=== PATIENT | male | born 1960 | race Caucasian/White ===

== ENCOUNTER 2016-11-17 09:01 | Inpatient (IN) | payer OTHER ==
[2016-11-17 09:36] VITALS: BMI 33.0
--- NOTE | 2016-11-17 13:41 | HP ---
CIWA Score - CIWA Score Nausea/Vomitin Muscle Tremors: 3 Anxiety: 3 Agitation: 3 Paroxysmal Sweats: 2 Orientation: 0-Oriented Tacttile Disturbances: 2-Mild Itch/Numbness/Burn Auditory Disturbances: 2-Mild Harshness/Frighten Visual Disturbances: 2-Mild Sensitivity Headache: 2-Mild CIWA-Ar Total Score: 22 Admission ROS BHS - HPI Chief Complaint: I NEED HELP TO STOP DRINKING ALCOHOL Allergies/Adverse Reactions: Allergies Allergy/AdvReac Type Severity Reaction Status Date / Time No Known Allergies Allergy Verified 11/17/16 10:02 History of Present Illness: THIS 56 YEARS OLD MALE WITH ALCOHOL DEPENDENCE,WITHDRAWAL SYMPTOM,LAST DETOX [facility] 09/12 MULTIPLE ADMISSIONS FOR DETOX TYPE 2 DM,HTN,HYPERCHOLESTEROLEMIA,CAD WITH STENT IN 2002,ASTHMA LONGEST PERIOD OF [id number] YEARS Exam Limitations: No Limitations - Ebola screening Have you traveled outside of the country in the last 21 days: No (N) Have you had contact with anyone from an Ebola affected area: No Have you been sick,other than usual withdrawal symptoms: No Do you have a fever: No - Review of Systems Constitutional: Loss of Appetite, Malaise, Night Sweats, Changes in sleep, Weakness EENT: reports: Nose Congestion Respiratory: reports: No Symptoms reported Cardiac: reports: No Symptoms Reported GI: reports: Nausea, Vomiting, Abdominal cramping : reports: No Symptoms Reported Musculoskeletal: reports: Back Pain Integumentary: reports: Dryness Endocrine: reports: No Symptoms Reported Hematology: reports: No Symptoms Reported Psychiatric: reports: Depressed Patient History - Patient Medical History Hx Anemia: No Hx Asthma: Yes (ON ALBUTEROL INHALER) Hx Chronic Obstructive Pulmonary Disease (COPD): No Hx Cancer: No Hx Cardiac Disorders: No Hx Congestive Heart Failure: No Hx Hypertension: Yes (ON MED) Hx Hypercholesterolemia: Yes (ON MED) Hx Pacemaker: No HX Cerebrovascular Accident: No Hx Seizures: No Hx Dementia: No Hx Diabetes: Yes (Stop taking Metformin) Hx Gastrointestinal Disorders: No Hx Liver Disease: No Hx Genitourinary Disorders: No Hx Sexually Transmitted Disorders: No Hx Renal Disease (ESRD): No Hx Thyroid Disease: No Hx Human Immunodeficiency Virus (HIV): No (NEGATIVE HX LAST 09/12 ) Hx Hepatitis C: No Hx Depression: Yes (ANXIETY) Hx Suicide Attempt: No Hx Bipolar Disorder: No Hx Schizophrenia: No Other Medical History: NO SUICIDAL,NO HOMICIDAL - Patient Surgical History Past Surgical History: Yes Hx Neurologic Surgery: No Hx Cataract Extraction: No Hx Cardiac Surgery: Yes (1 stent in 2005) Hx Lung Surgery: No Hx Breast Surgery: No Hx Breast Biopsy: No Hx Abdominal Surgery: No Hx Appendectomy: No Hx Cholecystectomy: No Hx Genitourinary Surgery: No Hx Section: No Hx Orthopedic Surgery: No Other Surgical History: coronary angioplasty in 2005 Anesthesia Reaction: No - PPD History Documented Results: Negative w/proof Implanted On Prior R Admission?: Yes Date: 04/27/16 Results: 0 MM PPD to be Administered?: No - Smoking Cessation Smoking history: Current every day smoker Have you smoked in the past 12 months: Yes Aproximately how many cigarettes per day: 2 Cigars Per Day: 0 Hx Chewing Tobacco Use: No Initiated information on smoking cessation: Yes 'Breaking Loose' booklet given: 11/17/16 - Substance & Tx. History Hx Alcohol Use: Yes Hx Substance Use: No Substance Use Type: Alcohol Hx Substance Use Treatment: Yes ([facility] 09/12) - Substances Abused Alcohol Route: Oral Frequency: Daily Amount used: 2 pint of Vodka, 2-3 12 oz Beer Age of first use: 12 Date of Last Use: 11/17/16 Marijuana/Hashish Route: Smoking Frequency: 1-2 times per week Amount used: $20 Age of first use: 15 Date of Last Use: 11/10/16 Family Disease History - Family Disease History Family Disease History: Diabetes: Mother (LEUKEMIA,), Brother, Other: Father (chronic alcoholism , age 47), Mother Admission Physical Exam S - Vital Signs Vital Signs: Vital Signs - 24 hr 11/17/16 09:34 Temperature 98.5 F Pulse Rate 71 Respiratory 20 Rate Blood Pressure 148/88 - Physical General Appearance: Yes: Moderate Distress, Tremorous, Irritable, Sweating, Anxious HEENTM: Yes: Nasal Congestion Respiratory: Yes: Lungs Clear Neck: Yes: Within Normal Limits Breast: Yes: Within Normal Limits Cardiology: Yes: Within Normal Limits, Regular Rhythm, Regular Rate, S1, S2 Abdominal: Yes: Within Normal Limits, Normal Bowel Sounds, Non Tender, Flat, Soft Genitourinary: Yes: Within Normal Limits Musculoskeletal: Yes: Back pain Extremities: Yes: Tremors Neurological: Yes: field tech II-XII NML intact, Fully Oriented, Alert, Motor Strength 5/5 Integumentary: Yes: Dry Lymphatic: Yes: Within Normal Limits - Diagnostic (1) Alcohol dependence with uncomplicated withdrawal Current Visit: No Status: Acute (2) Cannabis dependence Current Visit: No Status: Acute (3) Major depressive disorder, recurrent Current Visit: No Status: Acute (4) Nicotine dependence Current Visit: No Status: Acute Qualifiers: Nicotine product type: cigarettes Substance use status: uncomplicated Qualified Code(s): F17.210 - Nicotine dependence, cigarettes, uncomplicated (5) Asthma Current Visit: No Status: Chronic (6) Coronary artery disease Current Visit: No Status: Chronic Qualifiers: Coronary Disease-Associated Artery/Lesion type: [place] artery [place] vs. transplanted heart: [place] heart Associated angina: without angina Qualified Code(s): I25.10 - Atherosclerotic heart disease of [place] coronary artery without angina pectoris (7) DM Diabetes mellitus type 2 Current Visit: No Status: Chronic Comment: last BGM 108 (8) Essential hypertension Current Visit: No Status: Chronic (9) Hypercholesterolemia Current Visit: No Status: Chronic (10) S/P primary angioplasty with coronary stent Current Visit: No Status: Chronic Cleared for Admission BHS - Detox or Rehab S Level of Care: Medically Managed Detox Regimen/Protocol: Librium BHS Breath Alcohol Content Breath Alcohol Content: 0 Urine Drug Screen - Results Drug Screen Negative: No Urine Drug Screen Results: BZO-Benzodiazepines
[2016-11-17] MEDS ORDERED: chlordiazePOXIDE HCL 25 MG CAPSULE PO PRN (13:48)
[2016-11-17] MEDS ORDERED: guaiFENesin/D-METHORPHAN HB 10 ML UNIT-DOSE CUPS PO PRN (13:49)
[2016-11-17] MEDS ORDERED: ACETAMINOPHEN 325 MG TABLET (FP) PO PRN (13:49)
[2016-11-17] MEDS ORDERED: MAG HYDROX/AL HYDROX/SIMETH 30 ML UNIT-DOSE CUP PO PRN (13:49)
[2016-11-17] MEDS ORDERED: diphenhydrAMINE HCL 50 MG CAPSULE PO PRN (13:49)
[2016-11-17] MEDS ORDERED: MAGNESIUM CITRATE 300 ML BOTTLE PO PRN (13:49)
[2016-11-17] MEDS ORDERED: LOPERAMIDE HCL 2 MG CAPSULE PO PRN (13:49)
[2016-11-17] MEDS ORDERED: MENTHOL/PHENOL 1 EACH UD MM PRN (13:49)
[2016-11-17] MEDS ORDERED: P-EPHED 60MG/TRIPROLIDI 2.5MG TABLET PO PRN (13:49)
[2016-11-17] MEDS ORDERED: IBUPROFEN 400 MG TABLET (FP) PO PRN (13:49)
[2016-11-17] MEDS ORDERED: MAGNESIUM HYDROX 2400MG/30ML ORAL SUSPENSION 30 ML CUP PO PRN (13:49)
[2016-11-17] MEDS ORDERED: hydrOXYzine PAMOATE 50 MG CAPSULE (FP) PO PRN (13:49)
[2016-11-17] MEDS ORDERED: ALBUTEROL SO4 6.7 GM HFA INHALER IH PRN (13:51)
[2016-11-17] MEDS ORDERED: chlordiazePOXIDE HCL 25 MG CAPSULE PO ONE (13:54)
--- NOTE | 2016-11-17 16:26 | EKG ---
Test Reason : Blood Pressure : / mmHG Vent. Rate : 068 BPM Atrial Rate : 068 BPM P-R Int : 134 ms QRS Dur : 088 ms QT Int : 416 ms P-R-T Axes : 047 049 053 degrees QTc Int : 442 ms NORMAL SINUS RHYTHM NORMAL ECG NO PREVIOUS ECGS AVAILABLE Confirmed by AKHIL REEVES MD ([id number]) on 11/17/2016 4:26:26 PM Referred By: Confirmed By:AKHIL REEVES MD
[2016-11-17] MEDS: chlordiazePOXIDE HCL 25 MG CAPSULE PO SCH ×2 (17:40→22:21)
[2016-11-17 18:19] LABS: URINE APPEARANCE CLEAR; URINE BILIRUBIN NEGATIVE (NEGATIVE); URINE BLOOD NEGATIVE (NEGATIVE); URINE COLOR YELLOW; URINE GLUCOSE (UA) 1+ (NEGATIVE); URINE KETONE NEGATIVE (NEGATIVE); URINE LEUK ESTERASE NEGATIVE (NEGATIVE); URINE NITRITE NEGATIVE (NEGATIVE); URINE PROTEIN 2+ (NEGATIVE); URINE UROBILINOGEN NEGATIVE E.U./dl (0.2-1.0)
[2016-11-17 18:26] LABS: URINE BACTERIA RARE /hpf (NONE SEEN); URINE RBC 1 /hpf (0-3); URINE WBC 1 /hpf (3-5)
[2016-11-17] MEDS: THIAMINE HCL 100 MG TABLET (FP) PO SCH (22:21)
[2016-11-17] MEDS: MONTELUKAST NA 10 MG TABLET PO SCH (22:21)
[2016-11-17] MEDS: ATORVASTATIN CA 40 MG TABLET (FP) PO SCH (22:21)
[2016-11-18] MEDS: chlordiazePOXIDE HCL 25 MG CAPSULE PO SCH ×4 (05:44→22:29)
[2016-11-18] MEDS: LEVOTHYROXINE NA 25 MCG TABLET (FP) PO SCH (06:34)
[2016-11-18] MEDS ORDERED: RANITIDINE HCL 150 MG TABLET (FP) PO SCH (10:00)
[2016-11-18] MEDS ORDERED: CLOPIDOGREL BISULFATE 75 MG TABLET (FP) PO SCH (10:00)
[2016-11-18] MEDS ORDERED: LEVOTHYROXINE NA 75 MCG TABLET (FP) PO SCH (10:00)
[2016-11-18] MEDS ORDERED: ASPIRIN 81 MG CHEWABLE TABLETS PO SCH (10:00)
[2016-11-18] MEDS ORDERED: ENALAPRIL MALEATE 5 MG TABLET (FP) PO SCH (10:00)
[2016-11-18] MEDS ORDERED: PRENATAL VITAMINS W/ FOLIC ACID TABLET (FP) PO SCH (10:00)
[2016-11-18 10:17] LABS: MCH 35.4 pg (25.7-33.7); MCHC 34.4 g/dl (32.0-35.9); MEAN CELL VOLUME 102.7 fl (80-96); MEAN PLT VOLUME 9.2 fl (7.5-11.1); PLATELET COUNT 168 K/MM3 (134-434); RDW 14.4 % (11.9-15.9)
[2016-11-18 10:25] LABS: ALBUMIN 3.3 g/dl (3.4-5.0); ANION GAP 8 (8-16); CALCIUM 9.1 mg/dL (8.5-10.1); CO2 26 mmol/L (21-32); GLUCOSE,RANDOM 108 mg/dL (74-106)
[2016-11-18 10:29] LABS: ALK PHOS 61 U/L (45-117); BILIRUBIN,TOTAL 1.3 mg/dL (0.2-1.0); CREATININE 0.8 mg/dL (0.7-1.3); SGOT/AST 20 U/L (15-37); SGPT/ALT 29 U/L (12-78); TOT PROT 6.5 g/dl (6.4-8.2)
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
[2016-11-18] MEDS ORDERED: FLUoxetine HCL 20 MG CAPSULE (FP) PO SCH (12:00)
--- NOTE | 2016-11-18 16:10 | PN ---
[facility] CIWA - CIWA Score Nausea/Vomitin-No Nausea/No Vomiting Muscle Tremors: 4-Moderate,w/Arms Extend Anxiety: 4-Mod. Anxious/Guarded Agitation: 3 Paroxysmal Sweats: 3 Orientation: 0-Oriented Tacttile Disturbances: 0-None Auditory Disturbances: 0-None Visual Disturbances: 0-None Headache: 0-None Present CIWA-Ar Total Score: 14 BHS Progress Note (SOAP) Subjective: Anxiety,tremors,sweating,interrupted sleep,restless Objective: 11/18/16 16:09 Vital Signs - 8 hr 11/18/16 11/18/16 10:42 14:20 Temperature 99.3 F 97.3 F L Pulse Rate 72 73 Respiratory 18 19 Rate Blood Pressure 138/93 134/92 Laboratory Tests 11/17/16 11/17/16 11/17/16 09:57 16:12 17:00 WBC RBC Hgb Hct MCV MCHC RDW Plt Count MPV Sodium Potassium Chloride Carbon Dioxide Anion Gap BUN Creatinine Creat Clearance w eGFR POC Glucometer 171 123 Random Glucose Calcium Total Bilirubin AST ALT Alkaline Phosphatase Total Protein Albumin Urine Color Yellow Urine Appearance Clear Urine pH 6.0 Ur Specific [place] 1.023 Urine Protein 2+ H Urine Glucose (UA) 1+ H Urine Ketones Negative Urine Blood Negative Urine Nitrite Negative Urine Bilirubin Negative Urine Urobilinogen Negative Ur Leukocyte Esterase Negative Urine RBC 1 Urine WBC 1 Urine Bacteria Rare RPR Titer 11/18/16 11/18/16 11/18/16 05:44 08:00 08:00 WBC 6.0 D RBC 3.99 L Hgb 14.1 Hct 41.0 MCV 102.7 H MCHC 34.4 RDW 14.4 Plt Count 168 MPV 9.2 Sodium 141 Potassium 3.9 Chloride 107 Carbon Dioxide 26 Anion Gap 8 BUN 13 Creatinine 0.8 Creat Clearance w eGFR > 60 POC Glucometer 109 Random Glucose 108 H Calcium 9.1 Total Bilirubin 1.3 H D AST 20 ALT 29 D Alkaline Phosphatase 61 D Total Protein 6.5 Albumin 3.3 L Urine Color Urine Appearance Urine pH Ur Specific [place] Urine Protein Urine Glucose (UA) Urine Ketones Urine Blood Urine Nitrite Urine Bilirubin Urine Urobilinogen Ur Leukocyte Esterase Urine RBC Urine WBC Urine Bacteria RPR Titer 11/18/16 08:00 WBC RBC Hgb Hct MCV MCHC RDW Plt Count MPV Sodium Potassium Chloride Carbon Dioxide Anion Gap BUN Creatinine Creat Clearance w eGFR POC Glucometer Random Glucose Calcium Total Bilirubin AST ALT Alkaline Phosphatase Total Protein Albumin Urine Color Urine Appearance Urine pH Ur Specific [place] Urine Protein Urine Glucose (UA) Urine Ketones Urine Blood Urine Nitrite Urine Bilirubin Urine Urobilinogen Ur Leukocyte Esterase Urine RBC Urine WBC Urine Bacteria RPR Titer Nonreactive labs noted Assessment: 11/18/16 16:10 withdrawal sx. Plan: Continue detox
[2016-11-18] MEDS: MONTELUKAST NA 10 MG TABLET PO SCH (22:29)
[2016-11-18] MEDS: ATORVASTATIN CA 40 MG TABLET (FP) PO SCH (22:29)
[2016-11-18] MEDS: THIAMINE HCL 100 MG TABLET (FP) PO SCH (22:29)
[2016-11-19] MEDS: chlordiazePOXIDE HCL 25 MG CAPSULE PO SCH (05:44)
[2016-11-19] MEDS: LEVOTHYROXINE NA 25 MCG TABLET (FP) PO SCH (06:19)
[2016-11-19 06:27] VITALS: BP 124/94; PULSE 79; TEMP 98.2
[2016-11-19] MEDS ORDERED: chlordiazePOXIDE 5 MG CAPSULE PO SCH (17:00)
--- NOTE | 2016-11-19 18:23 | DS ---
[facility] Detox Discharge Summary Admission Date: 11/17/16 Discharge Date: 11/19/16 - History Present History: Alcohol Dependence, Cannabis Dependence Pertinent Past History: Asthma CAD Type II DM Hypothyroidism HTN Hypercholesterolemia - Physical Exam Results Vital Signs: Vital Signs Temperature 98.2 F 11/19/16 06:26 Pulse Rate 79 11/19/16 06:26 Respiratory Rate 18 11/19/16 06:26 Blood Pressure 124/94 11/19/16 06:26 O2 Sat by Pulse Oximetry (%) Pertinent Admission Physical Exam Findings: withdrawal sx. Laboratory Last Values WBC 6.0 K/mm3 (4.0-10.0) D 11/18/16 08:00 RBC 3.99 M/mm3 (4.00-5.60) L 11/18/16 08:00 Hgb 14.1 GM/dL (11.7-16.9) 11/18/16 08:00 Hct 41.0 % (35.4-49) 11/18/16 08:00 MCV 102.7 fl (80-96) H 11/18/16 08:00 MCHC 34.4 g/dl (32.0-35.9) 11/18/16 08:00 RDW 14.4 % (11.9-15.9) 11/18/16 08:00 Plt Count 168 K/MM3 (134-434) 11/18/16 08:00 MPV 9.2 fl (7.5-11.1) 11/18/16 08:00 Sodium 141 mmol/L (136-145) 11/18/16 08:00 Potassium 3.9 mmol/L (3.5-5.1) 11/18/16 08:00 Chloride 107 mmol/L (98-107) 11/18/16 08:00 Carbon Dioxide 26 mmol/L (21-32) 11/18/16 08:00 Anion Gap 8 (8-16) 11/18/16 08:00 BUN 13 mg/dL (7-18) 11/18/16 08:00 Creatinine 0.8 mg/dL (0.7-1.3) 11/18/16 08:00 Creat Clearance w eGFR > 60 (>60) 11/18/16 08:00 POC Glucometer 138 UNITS (()) 11/19/16 06:19 Random Glucose 108 mg/dL (74-106) H 11/18/16 08:00 Calcium 9.1 mg/dL (8.5-10.1) 11/18/16 08:00 Total Bilirubin 1.3 mg/dL (0.2-1.0) H D 11/18/16 08:00 AST 20 U/L (15-37) 11/18/16 08:00 ALT 29 U/L (12-78) D 11/18/16 08:00 Alkaline Phosphatase 61 U/L (45-117) D 11/18/16 08:00 Total Protein 6.5 g/dl (6.4-8.2) 11/18/16 08:00 Albumin 3.3 g/dl (3.4-5.0) L 11/18/16 08:00 Urine Color Yellow 11/17/16 17:00 Urine Appearance Clear 11/17/16 17:00 Urine pH 6.0 (5.0-8.0) 11/17/16 17:00 Ur Specific [place] 1.023 (1.001-1.035) 11/17/16 17:00 Urine Protein 2+ (NEGATIVE) H 11/17/16 17:00 Urine Glucose (UA) 1+ (NEGATIVE) H 11/17/16 17:00 Urine Ketones Negative (NEGATIVE) 11/17/16 17:00 Urine Blood Negative (NEGATIVE) 11/17/16 17:00 Urine Nitrite Negative (NEGATIVE) 11/17/16 17:00 Urine Bilirubin Negative (NEGATIVE) 11/17/16 17:00 Urine Urobilinogen Negative E.U./dl (0.2-1.0) 11/17/16 17:00 Ur Leukocyte Esterase Negative (NEGATIVE) 11/17/16 17:00 Urine RBC 1 /hpf (0-3) 11/17/16 17:00 Urine WBC 1 /hpf (3-5) 11/17/16 17:00 Urine Bacteria Rare /hpf (NONE SEEN) 11/17/16 17:00 RPR Titer Nonreactive (NONREACTIVE) 11/18/16 08:00 labs noted - Medication Discharge Medications: Ambulatory Orders Aspirin [ASA -] 81 mg PO DAILY #30 tab.chew 06/02/15 Atorvastatin Ca [Lipitor] 40 mg PO HS 02/18/16 Fluoxetine HCl [Prozac -] 40 mg PO DAILY #30 capsule 02/18/16 Ipratropium/Albuterol Sulfate [Combivent Respimat Inhal [place]] 1 puff IH BID Albuterol Sulfate Inhaler - [Ventolin HFA Inhaler -] 2 inh PO Q4H PRN #1 can 02/10 Clopidogrel Bisulfate [Plavix -] 75 mg PO DAILY #30 tablet 03/02/16 Enalapril Maleate [Vasotec -] 5 mg PO DAILY #30 tablet 03/02/16 Metformin HCl [Glucophage -] 500 mg PO BID #60 tablet 03/02/16 Fluoxetine HCl [Prozac -] 40 mg PO DAILY #30 capsule 03/03/16 Fluoxetine HCl [Prozac] 40 mg PO DAILY #30 capsule 04/26/16 Famotidine [Pepcid -] 20 mg PO DAILY 11/17/16 Gabapentin [Neurontin -] 100 mg PO TID 11/17/16 Levothyroxine [Synthroid -] 75 mg PO DAILY 11/17/16 Montelukast Na [Singulair -] 10 mg PO HS 11/17/16 Naltrexone HCl [Revia -] 50 mg PO DAILY 11/17/16 - Diagnosis (1) Alcohol dependence with uncomplicated withdrawal Status: Acute (2) Cannabis dependence Status: Acute (3) Nicotine dependence Status: Acute Qualifiers: Nicotine product type: cigarettes Substance use status: uncomplicated Qualified Code(s): F17.210 - Nicotine dependence, cigarettes, uncomplicated (4) Asthma Status: Chronic (5) Coronary artery disease Status: Chronic Qualifiers: Coronary Disease-Associated Artery/Lesion type: [place] artery [place] vs. transplanted heart: [place] heart Associated angina: without angina Qualified Code(s): I25.10 - Atherosclerotic heart disease of [place] coronary artery without angina pectoris (6) DM Diabetes mellitus type 2 Status: Chronic (7) Essential hypertension Status: Chronic (8) Hypercholesterolemia Status: Chronic (9) Hypothyroidism Status: Chronic (10) Major depressive disorder, recurrent episode, moderate Status: Chronic - AMA Did Patient Leave Against Medical Advice: Yes
[2016-11-20] MEDS ORDERED: chlordiazePOXIDE HCL 10 MG CAPSULE PO SCH (17:00)
== END 2016-11-19 08:55 | disposition left against medical advice (07) | DRG 770 ==
LOC: YASAS 09:01 → Y3N 11:57
PROVIDERS: ADMIT Internal Medicine; ATTEND Internal Medicine
PROC: HZ2ZZZZ Detoxification Services for Substance Abuse Treatment (ICD-10-PCS; principal; 2016-11-17)
DX: F10.230 Alcohol dependence with withdrawal, uncomplicated (principal); F12.20 Cannabis dependence, uncomplicated; F33.9 Major depressive disorder, recurrent, unspecified; K21.9 Gastro-esophageal reflux disease without esophagitis; J45.909 Unspecified asthma, uncomplicated; J44.9 Chronic obstructive pulmonary disease, unspecified; I25.10 Atherosclerotic heart disease of native coronary artery without angina pectoris; I10 Essential (primary) hypertension; E11.9 Type 2 diabetes mellitus without complications; E03.9 Hypothyroidism, unspecified; E78.00 Pure hypercholesterolemia, unspecified; E66.9 Obesity, unspecified; Z68.33 Body mass index [BMI] 33.0-33.9, adult; Z75.0 Medical services not available in home; Z72.0 Tobacco use
CPT/HCPCS: 36415; 80053; 81003; 81015; 85027; 86593; 93005; 93010

== ENCOUNTER 2017-01-20 16:29 | Inpatient (IN) | payer OTHER ==
[2017-01-20 18:54] VITALS: BMI 32.5
--- NOTE | 2017-01-20 20:21 | HP ---
[id number] 4d 4-Moderate,w/Arms Extend Anxiety: 4-Mod. Anxious/Guarded Agitation: 4-Moderately Restless Paroxysmal Sweats: 1-Minimal Palms Moist Orientation: 3-Disoriented Date>2 days Tacttile Disturbances: 0-None Auditory Disturbances: 0-None Visual Disturbances: 0-None Headache: 0-None Present CIWA-Ar Total Score: 17 Admission ROS BHS - HPI Chief Complaint: WITHDRAWAL SX Allergies/Adverse Reactions: Allergies Allergy/AdvReac Type Severity Reaction Status Date / Time No Known Allergies Allergy Verified 01/20/17 21:46 History of Present Illness: 56 YEARS OLD MALE WITH LONG HISTORY OF ALCOHOL NICOTINE DEPENDENCE HAS PREDIABETES, HYPERTENSION, HYPOTHYROID ASTHMA COPD CARDIAC STENT AND DEPRESSION IS ADMITTED TO DETOX Exam Limitations: No Limitations - Ebola screening Have you traveled outside of the country in the last 21 days: No Have you had contact with anyone from an Ebola affected area: No Have you been sick,other than usual withdrawal symptoms: No Do you have a fever: No - Review of Systems Constitutional: Chills, Changes in sleep, Weight Stable EENT: reports: No Symptoms Reported Respiratory: reports: Cough, SOB with Exertion Cardiac: reports: No Symptoms Reported GI: reports: Diarrhea, Nausea, Poor Fluid Intake, Indigestion, Abdominal cramping : reports: No Symptoms Reported Musculoskeletal: reports: No Symptoms Reported Integumentary: reports: Change in Color Neuro: reports: Tremors Endocrine: reports: Unexplained Weight Gain Hematology: reports: Blood Clots (STENT) Psychiatric: reports: Judgement Intact, Depressed Other Systems: Reviewed and Negative Patient History - Patient Medical History Hx Anemia: No Hx Asthma: Yes (ON ALBUTEROL INHALER) Hx Cancer: No Hx Cardiac Disorders: No Hx Congestive Heart Failure: No Hx Hypertension: Yes (ON MED) Hx Hypercholesterolemia: No Hx Pacemaker: No HX Cerebrovascular Accident: No Hx Seizures: No Hx Dementia: No Hx Diabetes: Yes (Stop taking Metformin) Hx Gastrointestinal Disorders: Yes Hx Liver Disease: No Hx Genitourinary Disorders: No Hx Sexually Transmitted Disorders: No Hx Renal Disease (ESRD): No Hx Thyroid Disease: No Hx Human Immunodeficiency Virus (HIV): No (NEGATIVE HX LAST 09/12 ) Hx Hepatitis C: No Hx Depression: Yes (ANXIETY) Hx Suicide Attempt: No Hx Bipolar Disorder: No Hx Schizophrenia: No - Patient Surgical History Past Surgical History: Yes Hx Neurologic Surgery: No Hx Cataract Extraction: No Hx Cardiac Surgery: Yes (1 stent in 2006) Hx Lung Surgery: No Hx Breast Surgery: No Hx Breast Biopsy: No Hx Abdominal Surgery: No Hx Appendectomy: No Hx Cholecystectomy: No Hx Genitourinary Surgery: No Hx Orthopedic Surgery: No Other Surgical History: coronary angioplasty in 2006 Anesthesia Reaction: No - PPD History Previous Implant?: Yes Documented Results: Negative w/o proof Implanted On Prior [facility] Admission?: Yes Date: 04/27/16 Results: 0 MM PPD to be Administered?: No - Smoking Cessation Smoking history: Current every day smoker Have you smoked in the past 12 months: Yes Aproximately how many cigarettes per day: 2 Cigars Per Day: 0 Hx Chewing Tobacco Use: No Initiated information on smoking cessation: Yes 'Breaking Loose' booklet given: 01/20/17 - Substance & Tx. History Hx Alcohol Use: Yes Hx Substance Use: No Substance Use Type: Alcohol Hx Substance Use Treatment: Yes - Substances Abused Alcohol Route: Oral Frequency: Daily Amount used: 2PINTS VOLKA Age of first use: 12 Date of Last Use: 01/19/17 Family Disease History - Family Disease History Family Disease History: Diabetes: Mother (LEUKEMIA,), Brother, Other: Father (chronic alcoholism , age 47), Mother Admission Physical Exam [facility] - Vital Signs Vital Signs: Vital Signs - 24 hr 01/20/17 18:52 Temperature 98.6 F Pulse Rate 79 Respiratory 20 Rate Blood Pressure 172/102 - Physical General Appearance: Yes: Appropriately Dressed, Mild Distress (PATIENT WAS TREATED AT [facility] FOR ALCO[facility]OL INTOX[facility] 01/19/17 WITH LIBRIUM + VALIUM = RELEASED 01/20/17 TO [facility] FOR ALCOHOL DETOX), Obese, Tremorous, Irritable, Sweating, Anxious HEENTM: Yes: Hearing grossly Normal, Normal ENT Inspection, Normocephalic, Normal Voice Respiratory: Yes: Chest Non-Tender, No Respiratory Distress, No Accessory Muscle Use, Wheezing, Expiration Neck: Yes: Supple, Trachea in good position Breast: Yes: Breasts Symetrical Cardiology: Yes: Regular Rhythm, Regular Rate, S1, S2 Abdominal: Yes: Non Tender, Soft Genitourinary: Yes: Within Normal Limits Back: Yes: Normal Inspection Musculoskeletal: Yes: full range of Motion, Gait Steady Extremities: Yes: Normal Range of Motion, Non-Tender, Tremors Neurological: Yes: Alert, Motor Strength 5/5, Normal Response, Depressed Affect Integumentary: Yes: Warm Lymphatic: Yes: Within Normal Limits - Diagnostic (1) Alcohol dependence with uncomplicated withdrawal Current Visit: Yes Status: Acute (2) Nicotine dependence Current Visit: Yes Status: Acute Qualifiers: Nicotine product type: cigarettes Substance use status: in withdrawal Qualified Code(s): F17.213 - Nicotine dependence, cigarettes, with withdrawal (3) Asthma Current Visit: Yes Status: Chronic (4) Essential hypertension Current Visit: Yes Status: Chronic (5) Hypothyroidism Current Visit: Yes Status: Chronic Qualifiers: Hypothyroidism type: acquired Qualified Code(s): E03.9 - Hypothyroidism, unspecified (6) S/P primary angioplasty with coronary stent Current Visit: Yes Status: Resolved (7) Diabetes mellitus type II, controlled Current Visit: Yes Status: Inactive Qualifiers: Diabetes mellitus complication status: without complication Diabetes mellitus rn long term care insulin use: without fpc use Qualified Code(s): E11.9 - Type 2 diabetes mellitus without complications Comment: DIETARY CONTROL (8) Neuropathy, alcoholic Current Visit: Yes Status: Chronic Cleared for Admission [facility] - Detox or Rehab [facility] Level of Care: Medically Managed Detox Regimen/Protocol: Librium [facility] Breath Alcohol Content Breath Alcohol Content: 0 Urine Drug Screen - Results Drug Screen Negative: No Urine Drug Screen Results: BZO-Benzodiazepines
[2017-01-20] MEDS ORDERED: MENTHOL/PHENOL 1 EACH UD MM PRN (20:27)
[2017-01-20] MEDS ORDERED: chlordiazePOXIDE HCL 25 MG CAPSULE PO PRN (20:27)
[2017-01-20] MEDS ORDERED: hydrOXYzine PAMOATE 50 MG CAPSULE (FP) PO PRN (20:27)
[2017-01-20] MEDS ORDERED: MAGNESIUM CITRATE 300 ML BOTTLE PO PRN (20:27)
[2017-01-20] MEDS ORDERED: NICOTINE 14 MG/24 HOURS TOPICAL PATCH TD PRN (20:27)
[2017-01-20] MEDS ORDERED: NICOTINE POLACRILEX 2 MG GUM BUC PRN (20:27)
[2017-01-20] MEDS ORDERED: LOPERAMIDE HCL 2 MG CAPSULE PO PRN (20:27)
[2017-01-20] MEDS ORDERED: diphenhydrAMINE HCL 50 MG CAPSULE PO PRN (20:27)
[2017-01-20] MEDS ORDERED: IBUPROFEN 400 MG TABLET (FP) PO PRN (20:27)
[2017-01-20] MEDS ORDERED: MAG HYDROX/AL HYDROX/SIMETH 30 ML UNIT-DOSE CUP PO PRN (20:27)
[2017-01-20] MEDS ORDERED: guaiFENesin/D-METHORPHAN HB 10 ML UNIT-DOSE CUPS PO PRN (20:27)
[2017-01-20] MEDS ORDERED: MAGNESIUM HYDROX 2400MG/30ML ORAL SUSPENSION 30 ML CUP PO PRN (20:27)
[2017-01-20] MEDS ORDERED: P-EPHED 60MG/TRIPROLIDI 2.5MG TABLET PO PRN (20:27)
[2017-01-20] MEDS ORDERED: chlordiazePOXIDE HCL 25 MG CAPSULE PO ONE (20:27)
[2017-01-20] MEDS ORDERED: ACETAMINOPHEN 325 MG TABLET (FP) PO PRN (20:27)
[2017-01-20] MEDS ORDERED: ALBUTEROL SO4 6.7 GM HFA INHALER IH PRN (20:29)
[2017-01-20] MEDS ORDERED: cloNIDine HCL 0.1 MG TABLET PO PRN (20:32)
[2017-01-20] MEDS: RANITIDINE HCL 150 MG TABLET (FP) PO SCH (23:36)
[2017-01-20] MEDS: GABAPENTIN 100 MG CAPSULE (FP) PO SCH (23:36)
[2017-01-20] MEDS: CLOTRIMAZOLE 1% CREAM 15 GM TUBE TP SCH (23:36)
[2017-01-20] MEDS: ASPIRIN 81 MG CHEWABLE TABLETS PO SCH (23:36)
[2017-01-20] MEDS: CLOPIDOGREL BISULFATE 75 MG TABLET (FP) PO SCH (23:36)
[2017-01-20] MEDS: chlordiazePOXIDE HCL 25 MG CAPSULE PO SCH (23:37)
[2017-01-20] MEDS: THIAMINE HCL 100 MG TABLET (FP) PO SCH (23:38)
[2017-01-20] MEDS: LABETALOL HCL 100 MG TABLET (FP) PO SCH (23:48)
[2017-01-21] MEDS: GABAPENTIN 100 MG CAPSULE (FP) PO SCH ×3 (06:08→22:04)
[2017-01-21] MEDS: chlordiazePOXIDE HCL 25 MG CAPSULE PO SCH ×4 (06:08→22:05)
[2017-01-21] MEDS ORDERED: LEVOTHYROXINE NA 75 MCG TABLET (FP) PO SCH (07:00)
--- NOTE | 2017-01-21 08:24 | EKG ---
Test Reason : Blood Pressure : / mmHG Vent. Rate : 066 BPM Atrial Rate : 066 BPM P-R Int : 150 ms QRS Dur : 088 ms QT Int : 432 ms P-R-T Axes : 054 063 063 degrees QTc Int : 452 ms NORMAL SINUS RHYTHM NORMAL ECG WHEN COMPARED WITH ECG OF 17-NOV-2016 14:22, NO SIGNIFICANT CHANGE WAS FOUND Confirmed by AKHIL REEVES MD ([id number]) on 01/21/2017 8:23:59 AM Referred By: Confirmed By:AKHIL REEVES MD
[2017-01-21] MEDS: RANITIDINE HCL 150 MG TABLET (FP) PO SCH ×2 (10:11→22:04)
[2017-01-21] MEDS: CLOPIDOGREL BISULFATE 75 MG TABLET (FP) PO SCH (10:11)
[2017-01-21] MEDS: ASPIRIN 81 MG CHEWABLE TABLETS PO SCH (10:11)
[2017-01-21] MEDS: PRENATAL VITAMINS W/ FOLIC ACID TABLET (FP) PO SCH (10:14)
[2017-01-21] MEDS: LEVOTHYROXINE NA 25 MCG TABLET (FP) PO SCH (10:19)
[2017-01-21 10:26] LABS: ALBUMIN 3.3 g/dl (3.4-5.0); SGOT/AST 47 U/L (15-37)
[2017-01-21 10:40] LABS: ALK PHOS 61 U/L (45-117); ANION GAP 14 (8-16); BILIRUBIN,TOTAL 2.9 mg/dL (0.2-1.0); CALCIUM 8.9 mg/dL (8.5-10.1); CO2 26 mmol/L (21-32); COCKROFT - GAULT 127.32; CREATININE 0.9 mg/dL (0.7-1.3); GLUCOSE,RANDOM 101 mg/dL (74-106); SGPT/ALT 38 U/L (12-78); THYROID STIMULATING HORMONE 0.36 uIU/ml (0.358-3.74); TOT PROT 6.9 g/dl (6.4-8.2)
[2017-01-21 10:42] LABS: MCH 33.3 pg (25.7-33.7); MCHC 33.2 g/dl (32.0-35.9); MEAN CELL VOLUME 100.4 fl (80-96); MEAN PLT VOLUME 9.2 fl (7.5-11.1); PLATELET COUNT 132 K/MM3 (134-434); RDW 13.9 % (11.9-15.9); WHITE BLOOD COUNT 5.8 K/mm3 (4.0-10.0)
[2017-01-21] MEDS: CLOTRIMAZOLE 1% CREAM 15 GM TUBE TP SCH ×2 (11:07→22:06)
[2017-01-21] MEDS: LABETALOL HCL 100 MG TABLET (FP) PO SCH ×2 (11:08→22:03)
--- NOTE | 2017-01-21 11:30 | PN ---
S CIWA - CIWA Score Nausea/Vomitin Muscle Tremors: 4-Moderate,w/Arms Extend Anxiety: 3 Agitation: 2 Paroxysmal Sweats: 3 Orientation: 0-Oriented Tacttile Disturbances: 0-None Auditory Disturbances: 0-None Visual Disturbances: 2-Mild Sensitivity Headache: 0-None Present CIWA-Ar Total Score: 17 BHS Progress Note (SOAP) Subjective: Diarrhea, Nausea, Sweating, Tremors. Objective: PT. A & O X 3. PT. DENIES CHEST PAIN. 01/21/17 11:28 Vital Signs Temperature 96.7 F L 01/21/17 09:45 Pulse Rate 63 01/21/17 09:45 Respiratory Rate 20 01/21/17 09:45 Blood Pressure 160/100 01/21/17 09:45 O2 Sat by Pulse Oximetry (%) Laboratory Last Values WBC 5.8 K/mm3 (4.0-10.0) 01/21/17 07:00 RBC 4.19 M/mm3 (4.00-5.60) 01/21/17 07:00 Hgb 14.0 GM/dL (11.7-16.9) 01/21/17 07:00 Hct 42.1 % (35.4-49) 01/21/17 07:00 MCV 100.4 fl (80-96) H 01/21/17 07:00 MCHC 33.2 g/dl (32.0-35.9) 01/21/17 07:00 RDW 13.9 % (11.9-15.9) 01/21/17 07:00 Plt Count 132 K/MM3 (134-434) L D 01/21/17 07:00 MPV 9.2 fl (7.5-11.1) 01/21/17 07:00 Sodium 133 mmol/L (136-145) L 01/21/17 07:00 Potassium 3.2 mmol/L (3.5-5.1) L 01/21/17 07:00 Chloride 93 mmol/L (98-107) L D 01/21/17 07:00 Carbon Dioxide 26 mmol/L (21-32) 01/21/17 07:00 Anion Gap 14 (8-16) 01/21/17 07:00 BUN 12 mg/dL (7-18) 01/21/17 07:00 Creatinine 0.9 mg/dL (0.7-1.3) 01/21/17 07:00 Creat Clearance w eGFR > 60 (>60) 01/21/17 07:00 Random Glucose 101 mg/dL (74-106) 01/21/17 07:00 Calcium 8.9 mg/dL (8.5-10.1) 01/21/17 07:00 Total Bilirubin 2.9 mg/dL (0.2-1.0) H D 01/21/17 07:00 AST 47 U/L (15-37) H D 01/21/17 07:00 ALT 38 U/L (12-78) D 01/21/17 07:00 Alkaline Phosphatase 61 U/L (45-117) 01/21/17 07:00 Total Protein 6.9 g/dl (6.4-8.2) 01/21/17 07:00 Albumin 3.3 g/dl (3.4-5.0) L 01/21/17 07:00 TSH 0.36 uIU/ml (0.358-3.74) 01/21/17 07:00 LABS NOTED. 01/21/17 11:33 01/21/17 11:36 Assessment: 01/21/17 11:33 WITHDRAWAL SYMPTOMS. 01/21/17 11:34 Plan: CONTINUE DETOX. K, 40 MEQ X 1, THEN 20 MEQ BID AFTER. ADVISED PATIENT TO FOLLOW-UP WITH [facility] / REHAB MEDICAL PROVIDER AFTER DISCHARGE FROM DETOX FOR GENERAL MEDICAL ASSESSMENT AND FOR ABNORMAL ADMISSION LAB VALUES.
[2017-01-21] MEDS ORDERED: POTASSIUM CHLORIDE TABS 20 MEQ TABLET.ER (FP) PO ONE (11:36)
--- NOTE | 2017-01-21 14:54 | CONSULT ---
[facility] Psychiatric Consult - Data Date of interview: 01/21/17 Admission source: [facility] Identifying data: Revisit to [facility] for this 56 y/o male seeking detox treatment on for alcohol and marijuana dependence.Patient is single without children,domiciled (lives at [facility]),unemployed and supported on Public Assistance. Substance Abuse History: - Smoking Cessation. Smoking history: Current every day smoker. Have you smoked in the past 12 months: Yes. Aproximately how many cigarettes per day: 2. Cigars Per Day: 0. Hx Chewing Tobacco Use: No. Initiated information on smoking cessation: Yes. 'Breaking Loose' booklet given : 01/20/17. - Substance & Tx. History. Hx Alcohol Use: Yes. Hx Substance Use : No. Substance Use Type: Alcohol. Hx Substance Use Treatment: Yes. - Substances Abused. Alcohol. Route: Oral. Frequency: Daily. Amount used: 2PINTS VOLKA. Age of first use: 12. Date of Last Use: 01/19/17. Confirmed by patient. Medical History: Hypothyroidism,bronchial asthma,COPD,diabetes mellitus,HTN, obesity,CAD with cardiac stent (2016),GERD and hypercholesterolemia. Psychiatric History: No history of psychatric hospitalizations.Diagnosed with MDD and Anxiety Disorder.Mr Buitrago is followed at the [facility] ([facility])in [facility].Prescribed prozac 40 mg/day (not taken for four months as per self-report).Patient admits to a remote history of suicide attempts (age 13) via self-mutilation and hanging (once). Physical/Sexual Abuse/Trauma History: Patient declines to Additional Comment: Urine Drug Screen Results: BZO-Benzodiazepines.Noted. Mental Status Exam - Mental Status Exam Alert and Oriented to: Time, Place, Person Cognitive Function: Grossly Intact Patient Appearance: Unkempt, Disheveled Mood: Withdrawn, Anxious, Apprehensive Affect: Mood Congruent Patient Behavior: Fatigued, Appropriate, Cooperative Speech Pattern: Clear Voice Loudness: Normal Thought Process: Goal Oriented Thought Disorder: Not Present Hallucinations: Denies Suicidal Ideation: Denies Homicidal Ideation: Denies Insight/Judgement: Poor Sleep: Fair Appetite: Fair Muscle strength/Tone: Normal Gait/Station: Normal Psychiatric Findings - Problem List ([place] 1, 2,3) (1) Alcohol dependence with uncomplicated withdrawal Current Visit: Yes Status: Acute (2) Nicotine dependence Current Visit: Yes Status: Acute Qualifiers: Nicotine product type: cigarettes Substance use status: in withdrawal Qualified Code(s): F17.213 - Nicotine dependence, cigarettes, with withdrawal (3) Alcohol-induced mood disorder Current Visit: Yes Status: Acute (4) Mood disorder Current Visit: Yes Status: Chronic (5) Asthma Current Visit: Yes Status: Chronic (6) Essential hypertension Current Visit: Yes Status: Chronic (7) Hypothyroidism Current Visit: Yes Status: Chronic Qualifiers: Hypothyroidism type: acquired Qualified Code(s): E03.9 - Hypothyroidism, unspecified (8) Neuropathy, alcoholic Current Visit: Yes Status: Chronic (9) Coronary artery disease Current Visit: Yes Status: Chronic Qualifiers: Coronary Disease-Associated Artery/Lesion type: [place] artery [place] vs. transplanted heart: [place] heart Associated angina: without angina Qualified Code(s): I25.10 - Atherosclerotic heart disease of [place] coronary artery without angina pectoris (10) DM Diabetes mellitus type 2 Current Visit: Yes Status: Chronic Comment: last BGM 108 (11) Hypercholesterolemia Current Visit: No Status: Chronic - Initial Treatment Plan Initial Treatment Plan: Psychoeducation.Detoxification.Prozac 20 mg po daily.Side effects/benefits discussed with patient.He agrees with this careplan.Observation.
[2017-01-21] MEDS ORDERED: cloNIDine HCL 0.1 MG TABLET PO ONE (17:45)
[2017-01-21] MEDS: POTASSIUM CHLORIDE TABS 20 MEQ TABLET.ER (FP) PO SCH (22:03)
[2017-01-21] MEDS: THIAMINE HCL 100 MG TABLET (FP) PO SCH (22:04)
[2017-01-22] MEDS: chlordiazePOXIDE HCL 25 MG CAPSULE PO SCH ×3 (05:43→17:27)
[2017-01-22] MEDS: GABAPENTIN 100 MG CAPSULE (FP) PO SCH ×3 (05:43→22:12)
[2017-01-22] MEDS: LEVOTHYROXINE NA 25 MCG TABLET (FP) PO SCH (06:04)
[2017-01-22] MEDS ORDERED: LEVOTHYROXINE NA 25 MCG TABLET (FP) PO SCH (09:25)
[2017-01-22] MEDS: LABETALOL HCL 100 MG TABLET (FP) PO SCH ×2 (10:13→22:12)
[2017-01-22] MEDS: RANITIDINE HCL 150 MG TABLET (FP) PO SCH ×2 (10:13→22:12)
[2017-01-22] MEDS: CLOPIDOGREL BISULFATE 75 MG TABLET (FP) PO SCH (10:13)
[2017-01-22] MEDS: CLOTRIMAZOLE 1% CREAM 15 GM TUBE TP SCH ×2 (10:13→22:12)
[2017-01-22] MEDS: ASPIRIN 81 MG CHEWABLE TABLETS PO SCH (10:13)
[2017-01-22] MEDS: POTASSIUM CHLORIDE TABS 20 MEQ TABLET.ER (FP) PO SCH ×2 (10:14→22:12)
[2017-01-22] MEDS: PRENATAL VITAMINS W/ FOLIC ACID TABLET (FP) PO SCH (10:15)
[2017-01-22] MEDS: FLUoxetine HCL 20 MG CAPSULE (FP) PO SCH (10:53)
--- NOTE | 2017-01-22 11:04 | PN ---
[facility] CIWA - CIWA Score Nausea/Vomitin-No Nausea/No Vomiting Muscle Tremors: 4-Moderate,w/Arms Extend Anxiety: 4-Mod. Anxious/Guarded Agitation: 3 Paroxysmal Sweats: 3 Orientation: 0-Oriented Tacttile Disturbances: 0-None Auditory Disturbances: 0-None Visual Disturbances: 0-None Headache: 0-None Present CIWA-Ar Total Score: 14 S Progress Note (SOAP) Subjective: Anxiety,tremors,sweating,interrupted sleep,restless. Objective: 01/22/17 11:02 Vital Signs - 8 hr 01/22/17 01/22/17 01/22/17 03:26 06:30 09:12 Temperature 97.0 F L 96.9 F L Pulse Rate 69 71 Respiratory 18 18 18 Rate Blood Pressure 136/94 147/106 Laboratory Last Values WBC 5.8 K/mm3 (4.0-10.0) 01/21/17 07:00 RBC 4.19 M/mm3 (4.00-5.60) 01/21/17 07:00 Hgb 14.0 GM/dL (11.7-16.9) 01/21/17 07:00 Hct 42.1 % (35.4-49) 01/21/17 07:00 MCV 100.4 fl (80-96) H 01/21/17 07:00 MCHC 33.2 g/dl (32.0-35.9) 01/21/17 07:00 RDW 13.9 % (11.9-15.9) 01/21/17 07:00 Plt Count 132 K/MM3 (134-434) L D 01/21/17 07:00 MPV 9.2 fl (7.5-11.1) 01/21/17 07:00 Sodium 133 mmol/L (136-145) L 01/21/17 07:00 Potassium 3.2 mmol/L (3.5-5.1) L 01/21/17 07:00 Chloride 93 mmol/L (98-107) L D 01/21/17 07:00 Carbon Dioxide 26 mmol/L (21-32) 01/21/17 07:00 Anion Gap 14 (8-16) 01/21/17 07:00 BUN 12 mg/dL (7-18) 01/21/17 07:00 Creatinine 0.9 mg/dL (0.7-1.3) 01/21/17 07:00 Creat Clearance w eGFR > 60 (>60) 01/21/17 07:00 Random Glucose 101 mg/dL (74-106) 01/21/17 07:00 Calcium 8.9 mg/dL (8.5-10.1) 01/21/17 07:00 Total Bilirubin 2.9 mg/dL (0.2-1.0) H D 01/21/17 07:00 AST 47 U/L (15-37) H D 01/21/17 07:00 ALT 38 U/L (12-78) D 01/21/17 07:00 Alkaline Phosphatase 61 U/L (45-117) 01/21/17 07:00 Total Protein 6.9 g/dl (6.4-8.2) 01/21/17 07:00 Albumin 3.3 g/dl (3.4-5.0) L 01/21/17 07:00 TSH 0.36 uIU/ml (0.358-3.74) 01/21/17 07:00 RPR Titer Nonreactive (NONREACTIVE) 01/21/17 07:00 labs noted Assessment: 01/22/17 11:03 Withdrawal sx. Plan: Continue detox
[2017-01-22 15:46] LABS: URINE APPEARANCE CLEAR; URINE BILIRUBIN NEGATIVE (NEGATIVE); URINE BLOOD NEGATIVE (NEGATIVE); URINE COLOR DKYELLOW; URINE GLUCOSE (UA) NEGATIVE (NEGATIVE); URINE KETONE NEGATIVE (NEGATIVE); URINE LEUK ESTERASE NEGATIVE (NEGATIVE); URINE NITRITE NEGATIVE (NEGATIVE); URINE UROBILINOGEN 2.0 E.U/dl E.U./dl (0.2-1.0)
[2017-01-22 16:03] LABS: URINE PROTEIN 2+ (NEGATIVE)
[2017-01-22 16:34] LABS: URINE MUCUS RARE; URINE RBC <1 /hpf (0-3); URINE WBC 1 /hpf (3-5)
[2017-01-22] MEDS: chlordiazePOXIDE 5 MG CAPSULE PO SCH (22:12)
[2017-01-22] MEDS: THIAMINE HCL 100 MG TABLET (FP) PO SCH (22:12)
[2017-01-23] MEDS: chlordiazePOXIDE 5 MG CAPSULE PO SCH ×2 (05:42→10:12)
[2017-01-23] MEDS: GABAPENTIN 100 MG CAPSULE (FP) PO SCH ×3 (05:42→22:32)
[2017-01-23] MEDS: LEVOTHYROXINE NA 25 MCG TABLET (FP) PO SCH (06:58)
--- NOTE | 2017-01-23 09:13 | PN ---
BHS Progress Note (SOAP) Subjective: ANXIETY, RESTLESSNESS. Objective: 01/23/17 09:12 Vital Signs Temperature 98.1 F 01/23/17 06:23 Pulse Rate 67 01/23/17 06:23 Respiratory Rate 18 01/23/17 06:23 Blood Pressure 128/87 01/23/17 06:23 O2 Sat by Pulse Oximetry (%) Assessment: 01/23/17 09:12 WITHDRAWAL SX Plan: CONTINUE DETOX
[2017-01-23] MEDS: CLOPIDOGREL BISULFATE 75 MG TABLET (FP) PO SCH (10:12)
[2017-01-23] MEDS: RANITIDINE HCL 150 MG TABLET (FP) PO SCH ×2 (10:12→22:33)
[2017-01-23] MEDS: FLUoxetine HCL 20 MG CAPSULE (FP) PO SCH (10:12)
[2017-01-23] MEDS: ASPIRIN 81 MG CHEWABLE TABLETS PO SCH (10:12)
[2017-01-23] MEDS: LABETALOL HCL 100 MG TABLET (FP) PO SCH ×2 (10:13→22:32)
[2017-01-23] MEDS: CLOTRIMAZOLE 1% CREAM 15 GM TUBE TP SCH ×2 (10:13→22:32)
[2017-01-23] MEDS: POTASSIUM CHLORIDE TABS 20 MEQ TABLET.ER (FP) PO SCH ×2 (10:14→22:32)
[2017-01-23] MEDS: PRENATAL VITAMINS W/ FOLIC ACID TABLET (FP) PO SCH (10:52)
[2017-01-23] MEDS: chlordiazePOXIDE HCL 10 MG CAPSULE PO SCH ×2 (17:08→22:32)
[2017-01-23 17:25] VITALS: BP 112/78; PULSE 71; TEMP 97.9
[2017-01-23] MEDS: THIAMINE HCL 100 MG TABLET (FP) PO SCH (22:32)
[2017-01-23] MEDS ORDERED: chlordiazePOXIDE HCL 10 MG CAPSULE PO SCH (23:00)
[2017-01-24] MEDS: chlordiazePOXIDE HCL 10 MG CAPSULE PO SCH (06:18)
[2017-01-24] MEDS: GABAPENTIN 100 MG CAPSULE (FP) PO SCH (06:18)
[2017-01-24] MEDS: LEVOTHYROXINE NA 25 MCG TABLET (FP) PO SCH (07:23)
--- NOTE | 2017-01-24 13:12 | DS ---
[facility] Detox Discharge Summary Admission Date: 01/20/17 Discharge Date: 01/24/17 - History Present History: Alcohol Dependence Additional Comments: ADVISED PATIENT TO FOLLOW-UP WITH [facility] / REHAB MEDICAL PROVIDER AFTER DISCHARGE FROM DETOX FOR GENERAL MEDICAL ASSESSMENT AND FOR ABNORMAL ADMISSION LAB VALUES. Pertinent Past History: Asthma, HTN, DM, History of Angioplasty w/ Coronary Stent, Depression. - Physical Exam Results Vital Signs: Vital Signs Temperature 97.9 F 01/23/17 17:25 Pulse Rate 71 01/23/17 17:25 Respiratory Rate 18 01/23/17 17:25 Blood Pressure 112/78 01/23/17 17:25 O2 Sat by Pulse Oximetry (%) Pertinent Admission Physical Exam Findings: WITHDRAWAL SYMPTOMS. Laboratory Last Values WBC 5.8 K/mm3 (4.0-10.0) 01/21/17 07:00 RBC 4.19 M/mm3 (4.00-5.60) 01/21/17 07:00 Hgb 14.0 GM/dL (11.7-16.9) 01/21/17 07:00 Hct 42.1 % (35.4-49) 01/21/17 07:00 MCV 100.4 fl (80-96) H 01/21/17 07:00 MCHC 33.2 g/dl (32.0-35.9) 01/21/17 07:00 RDW 13.9 % (11.9-15.9) 01/21/17 07:00 Plt Count 132 K/MM3 (134-434) L D 01/21/17 07:00 MPV 9.2 fl (7.5-11.1) 01/21/17 07:00 Sodium 133 mmol/L (136-145) L 01/21/17 07:00 Potassium 3.2 mmol/L (3.5-5.1) L 01/21/17 07:00 Chloride 93 mmol/L (98-107) L D 01/21/17 07:00 Carbon Dioxide 26 mmol/L (21-32) 01/21/17 07:00 Anion Gap 14 (8-16) 01/21/17 07:00 BUN 12 mg/dL (7-18) 01/21/17 07:00 Creatinine 0.9 mg/dL (0.7-1.3) 01/21/17 07:00 Creat Clearance w eGFR > 60 (>60) 01/21/17 07:00 Random Glucose 101 mg/dL (74-106) 01/21/17 07:00 Calcium 8.9 mg/dL (8.5-10.1) 01/21/17 07:00 Total Bilirubin 2.9 mg/dL (0.2-1.0) H D 01/21/17 07:00 AST 47 U/L (15-37) H D 01/21/17 07:00 ALT 38 U/L (12-78) D 01/21/17 07:00 Alkaline Phosphatase 61 U/L (45-117) 01/21/17 07:00 Total Protein 6.9 g/dl (6.4-8.2) 01/21/17 07:00 Albumin 3.3 g/dl (3.4-5.0) L 01/21/17 07:00 TSH 0.36 uIU/ml (0.358-3.74) 01/21/17 07:00 Urine Color Dkyellow 01/22/17 11:00 Urine Appearance Clear 01/22/17 11:00 Urine pH 6.0 (5.0-8.0) 01/22/17 11:00 Ur Specific [place] 1.024 (1.001-1.035) 01/22/17 11:00 Urine Protein 2+ (NEGATIVE) H 01/22/17 11:00 Urine Glucose (UA) Negative (NEGATIVE) 01/22/17 11:00 Urine Ketones Negative (NEGATIVE) 01/22/17 11:00 Urine Blood Negative (NEGATIVE) 01/22/17 11:00 Urine Nitrite Negative (NEGATIVE) 01/22/17 11:00 Urine Bilirubin Negative (NEGATIVE) 01/22/17 11:00 Urine Urobilinogen 2.0 e.u/dl E.U./dl (0.2-1.0) 01/22/17 11:00 Ur Leukocyte Esterase Negative (NEGATIVE) 01/22/17 11:00 Urine RBC <1 /hpf (0-3) 01/22/17 11:00 Urine WBC 1 /hpf (3-5) 01/22/17 11:00 Ur Epithelial Cells Rare /hpf (FEW) 01/22/17 11:00 Urine Mucus Rare 01/22/17 11:00 RPR Titer Nonreactive (NONREACTIVE) 01/21/17 07:00 LABS NOTED. - Treatment Hospital Course: Detox Protocol Followed, Detoxed Safely, Responded well, Discharged Condition Good Patient has Accepted a Rehab Referral to: NO - PT. ELECTING TO GO HOME. AA / 12- STEP PROGRAMS RECOMENDED. - Medication Discharge Medications: Ambulatory Orders Aspirin [ASA -] 81 mg PO DAILY #30 tab.chew 06/02/15 Atorvastatin Ca [Lipitor] 40 mg PO HS 02/18/16 Fluoxetine HCl [Prozac -] 40 mg PO DAILY #30 capsule 02/18/16 Ipratropium/Albuterol Sulfate [Combivent Respimat Inhal [place]] 1 puff IH BID Albuterol Sulfate Inhaler - [Ventolin HFA Inhaler -] 2 inh PO Q4H PRN #1 can 02/10 Clopidogrel Bisulfate [Plavix -] 75 mg PO DAILY #30 tablet 03/02/16 Enalapril Maleate [Vasotec -] 5 mg PO DAILY #30 tablet 03/02/16 Metformin HCl [Glucophage -] 500 mg PO BID #60 tablet 03/02/16 Fluoxetine HCl [Prozac -] 40 mg PO DAILY #30 capsule 03/03/16 Fluoxetine HCl [Prozac] 40 mg PO DAILY #30 capsule 04/26/16 Famotidine [Pepcid -] 20 mg PO DAILY 11/17/16 Gabapentin [Neurontin -] 100 mg PO TID 11/17/16 Levothyroxine [Synthroid -] 75 mg PO DAILY 11/17/16 Montelukast Na [Singulair -] 10 mg PO HS 11/17/16 Naltrexone HCl [Revia -] 50 mg PO DAILY 11/17/16 Fluoxetine HCl [Prozac] 20 mg PO DAILY #30 capsule 01/21/17 - Diagnosis (1) Alcohol dependence with uncomplicated withdrawal Status: Acute (2) Alcohol-induced mood disorder Status: Acute (3) Nicotine dependence Status: Chronic Qualifiers: Nicotine product type: cigarettes Substance use status: in withdrawal Qualified Code(s): F17.213 - Nicotine dependence, cigarettes, with withdrawal (4) Asthma Status: Chronic (5) Coronary artery disease Status: Chronic Qualifiers: Coronary Disease-Associated Artery/Lesion type: [place] artery [place] vs. transplanted heart: [place] heart Associated angina: without angina Qualified Code(s): I25.10 - Atherosclerotic heart disease of [place] coronary artery without angina pectoris (6) DM Diabetes mellitus type 2 Status: Chronic (7) Essential hypertension Status: Chronic (8) Hypothyroidism Status: Chronic Qualifiers: Hypothyroidism type: acquired Qualified Code(s): E03.9 - Hypothyroidism, unspecified (9) Neuropathy, alcoholic Status: Chronic - AMA Did Patient Leave Against Medical Advice: No
== END 2017-01-24 07:25 | disposition home or self-care (01) | DRG 775 ==
LOC: YASAS 16:29 → Y3N 20:57
PROVIDERS: ADMIT Internal Medicine; ATTEND Internal Medicine
PROC: HZ2ZZZZ Detoxification Services for Substance Abuse Treatment (ICD-10-PCS; principal; 2017-01-24)
DX: F10.230 Alcohol dependence with withdrawal, uncomplicated (principal); F17.210 Nicotine dependence, cigarettes, uncomplicated; F10.24 Alcohol dependence with alcohol-induced mood disorder; I25.10 Atherosclerotic heart disease of native coronary artery without angina pectoris; I10 Essential (primary) hypertension; Z95.5 Presence of coronary angioplasty implant and graft; E11.9 Type 2 diabetes mellitus without complications; E78.00 Pure hypercholesterolemia, unspecified; K21.9 Gastro-esophageal reflux disease without esophagitis; E03.9 Hypothyroidism, unspecified; F33.9 Major depressive disorder, recurrent, unspecified; F41.9 Anxiety disorder, unspecified; G62.1 Alcoholic polyneuropathy
CPT/HCPCS: 36415; 80053; 81003; 81015; 84443; 85027; 86593; 93005; 93010

== ENCOUNTER 2018-07-26 11:49 | Inpatient (IN) | payer OTHER ==
[2018-07-26 13:58] VITALS: BMI 46.8
--- NOTE | 2018-07-26 17:17 | HP ---
CIWA Score - CIWA Score Nausea/Vomitin-Mild Nausea/No Vomiting Muscle Tremors: 4-Moderate,w/Arms Extend Anxiety: 1-Mildly Anxious Agitation: 1-Slight > Activity Paroxysmal Sweats: 2 (Facial sweating/ moisture w/o beads) Orientation: 1-Uncertain about Date Tacttile Disturbances: 0-None Auditory Disturbances: 0-None Visual Disturbances: 0-None Headache: 2-Mild CIWA-Ar Total Score: 12 Admission ROS BHS - HPI Chief Complaint: Here for alcohol withdrawal. Allergies/Adverse Reactions: Allergies Allergy/AdvReac Type Severity Reaction Status Date / Time No Known Allergies Allergy Verified 07/26/18 15:59 History of Present Illness: Alcohol use since age 12. Denies other substance use. Nicotine use since age 12. States urine (+) for benzo because was given in ER at [facility]. Does not have papers from ER visit. Stats not given any discharge medications. Hx seizures - last 2 months ago. Denies hx blackouts. Hx: HTN, Asthma, Cardiac stent, States unsure if has diabetes or thyroid problems. Has not been on any medications, except albuterol inhaler, for months. States non-compliant w/ medications. FURNITURE DUSTER: Negative Exam Limitations: No Limitations - Ebola screening Have you traveled outside of the country in the last 21 days: No Have you had contact with anyone from an Ebola affected area: No Have you been sick,other than usual withdrawal symptoms: No Do you have a fever: No - Review of Systems Constitutional: Chills EENT: reports: Dental Problems (Missing alot of teeth. Denies pain, swallowing or chewing difficulties.) Respiratory: reports: Cough (x months.), Shortness of Breath (r/t asthma), SOB with Exertion, Wheezing (r/t asthma) Cardiac: reports: Other (Cardiac stent 2002. HTN under control w/o meds.) GI: reports: Nausea (r/t withdrawal), Indigestion (States acid reflux r/t alcohol use.) : reports: No Symptoms Reported Musculoskeletal: reports: No Symptoms Reported Integumentary: reports: Other (Rash on feet.) Neuro: reports: Headache (mild - r/t withdrawal), Tremors Endocrine: reports: Excessive Sweating (Moderate sweating r/t withdrawal) Hematology: reports: No Symptoms Reported Psychiatric: reports: Judgement Intact, Agitated, Anxious, Depressed (Denies thoughts of harming self or others), other (Oriented x 2. Unsure of date) Patient History - Patient Medical History Hx Anemia: No Hx Asthma: Yes (Has an inhaler) Hx Chronic Obstructive Pulmonary Disease (COPD): No Hx Cancer: No Hx Cardiac Disorders: No Hx Congestive Heart Failure: No Hx Hypertension: Yes (Not on meds) Hx Hypercholesterolemia: No Hx Pacemaker: No HX Cerebrovascular Accident: No Hx Seizures: No Hx Dementia: No Hx Diabetes: Yes (NIDDM - States not on medications) Hx Gastrointestinal Disorders: Yes (acid reflux r/t alcohol use - not on meds ) Hx Liver Disease: No Hx Genitourinary Disorders: No Hx Sexually Transmitted Disorders: No Hx Renal Disease (ESRD): No Hx Thyroid Disease: No Hx Human Immunodeficiency Virus (HIV): No (NEGATIVE HX LAST 09/12 ) Hx Hepatitis C: No Hx Depression: Yes (Denies thoughts of harming self or others) Hx Suicide Attempt: No Hx Bipolar Disorder: No Hx Schizophrenia: No - Patient Surgical History Past Surgical History: Yes Hx Neurologic Surgery: No Hx Cataract Extraction: No Hx Cardiac Surgery: Yes (1 stent in 2002) Hx Lung Surgery: No Hx Breast Surgery: No Hx Breast Biopsy: No Hx Abdominal Surgery: No Hx Appendectomy: No Hx Cholecystectomy: No Hx Genitourinary Surgery: No Hx Section: No Hx Orthopedic Surgery: No Other Surgical History: coronary angioplasty in 2002 Anesthesia Reaction: No - PPD History Previous Implant?: Yes Documented Results: Negative w/proof Implanted On Prior [facility] Admission?: Yes Date: 04/27/16 Results: 0 mm PPD to be Administered?: Yes - Smoking Cessation Smoking history: Current every day smoker Have you smoked in the past 12 months: Yes Aproximately how many cigarettes per day: 10 Cigars Per Day: 0 Hx Chewing Tobacco Use: No Initiated information on smoking cessation: Yes 'Breaking Loose' booklet given: 07/26/18 - Substance & Tx. History Hx Alcohol Use: Yes Hx Substance Use: Yes Substance Use Type: Alcohol Hx Substance Use Treatment: Yes (detox, rehab) - Substances Abused Alcohol-vodka Route: Oral Frequency: Daily Amount used: 1 qt./1-6 pk. Age of first use: 12 Date of Last Use: 07/26/18 Family Disease History - Family Disease History Family Disease History: Diabetes: Mother (LEUKEMIA,), Brother, Other: Father (chronic alcoholism , age 47), Mother Admission Physical Exam S - Vital Signs Vital Signs: Vital Signs - 24 hr 07/26/18 13:57 Temperature 98.6 F Pulse Rate 89 Respiratory 20 Rate Blood Pressure 142/75 - Physical General Appearance: Yes: Disheveled (Unkempt), Mild Distress HEENTM: Yes: EOMI (jerking movements of eyes o lateral gaze), Hearing grossly Normal, Normal Voice, ELIAZAR, Pharynx Normal Respiratory: Yes: Decreased Breath Sounds, Labored Respiration, Wheezing (mild bilateral wheezing at bases w/o rales/rhonchi), Other (Noisy cough productive of whitish phlegm) Neck: Yes: No masses,lesions,Nodules, Supple Breast: Yes: Breast Exam Deferred Cardiology: Yes: Regular Rhythm, Regular Rate, S1, S2 Abdominal: Yes: Normal Bowel Sounds, Non Tender, Protuberent Genitourinary: Yes: Nocturia (3-4 x/ night urination) Back: Yes: Normal Inspection Musculoskeletal: Yes: full range of Motion Extremities: Yes: Normal Capillary Refill, Normal Range of Motion, Non-Tender, Tremors (tremors on rest which increase significantly w/ arm elevation) Neurological: Yes: animal stunner II-XII NML intact, Alert, Motor Strength 5/5, Normal Mood /Affect Integumentary: Yes: Normal Color, Warm, Pitting Edema (toes to mid calf), Other (Feet w/ macerated skin r/t moist socks, (+) cracks between toes. Foul odor.) - Diagnostic (1) Alcohol dependence with uncomplicated withdrawal Current Visit: Yes Status: Acute Comment: CHAN 0.132 (2) Coronary artery disease Current Visit: No Status: Chronic Qualifiers: Coronary Disease-Associated Artery/Lesion type: [place] artery [place] vs. transplanted heart: [place] heart Associated angina: without angina Qualified Code(s): I25.10 - Atherosclerotic heart disease of [place] coronary artery without angina pectoris Comment: Stent 2002. (3) DM Diabetes mellitus type 2 Current Visit: Yes Status: Suspected Comment: last BGM 113 (4) Essential hypertension Current Visit: Yes Status: Suspected (5) Hypothyroidism Current Visit: No Status: Suspected Qualifiers: Hypothyroidism type: unspecified Qualified Code(s): E03.9 - Hypothyroidism , unspecified (6) Nicotine dependence Current Visit: Yes Status: Chronic Qualifiers: Nicotine product type: cigarettes Substance use status: uncomplicated Qualified Code(s): F17.210 - Nicotine dependence, cigarettes, uncomplicated (7) Tinea pedis Current Visit: Yes Status: Acute Qualifiers: Laterality: bilateral Qualified Code(s): B35.3 - Tinea pedis (8) Nystagmus Current Visit: Yes Status: Acute (9) Asthma without status asthmaticus Current Visit: Yes Status: Acute Qualifiers: Asthma severity: mild Asthma persistence: intermittent Asthma complication type: uncomplicated Qualified Code(s): J45.20 - Mild intermittent asthma, uncomplicated Cleared for Admission BHS - Detox or Rehab [facility] Level of Care: Medically Managed Detox Regimen/Protocol: Librium [facility] Breath Alcohol Content Breath Alcohol Content: 0.132 Urine Drug Screen - Results Drug Screen Negative: No Urine Drug Screen Results: BZO-Benzodiazepines
[2018-07-26] MEDS ORDERED: MENTHOL/PHENOL 1 EACH UD MM PRN (17:49)
[2018-07-26] MEDS ORDERED: ACETAMINOPHEN 325 MG TABLET (FP) PO PRN (17:49)
[2018-07-26] MEDS ORDERED: chlordiazePOXIDE HCL 25 MG CAPSULE PO PRN (17:49)
[2018-07-26] MEDS ORDERED: MAGNESIUM HYDROX 2400MG/30ML ORAL SUSPENSION 30 ML CUP PO PRN (17:49)
[2018-07-26] MEDS ORDERED: LOPERAMIDE HCL 2 MG CAPSULE PO PRN (17:49)
[2018-07-26] MEDS ORDERED: MAGNESIUM CITRATE 300 ML BOTTLE PO PRN (17:49)
[2018-07-26] MEDS ORDERED: MAG HYDROX/AL HYDROX/SIMETH 30 ML UNIT-DOSE CUP PO PRN (17:49)
[2018-07-26] MEDS ORDERED: IBUPROFEN 400 MG TABLET (FP) PO PRN (17:49)
[2018-07-26] MEDS ORDERED: NICOTINE POLACRILEX 2 MG GUM BC PRN (17:49)
[2018-07-26] MEDS ORDERED: chlordiazePOXIDE HCL 25 MG CAPSULE PO ONE (19:00)
[2018-07-26] MEDS: ASPIRIN 81 MG CHEWABLE TABLETS PO SCH (19:22)
[2018-07-26] MEDS: ALBUTEROL SO4 2.5/IPRATROPIUM 0.5 INH SOL 3 ML VIAL.NEB. NEB SCH (22:27)
[2018-07-26] MEDS: THIAMINE HCL 100 MG TABLET (FP) PO SCH (22:28)
[2018-07-26] MEDS: chlordiazePOXIDE HCL 25 MG CAPSULE PO SCH (22:29)
[2018-07-26] MEDS: guaiFENesin 600 MG TABLET.ER (FP) PO SCH (22:31)
[2018-07-26] MEDS: TOLNAFTATE 1% CREAM 15 GM TUBE TP SCH (22:32)
[2018-07-26 23:14] LABS: URINE APPEARANCE CLEAR; URINE BILIRUBIN NEGATIVE (<2.0 mg/dL); URINE COLOR YELLOW; URINE GLUCOSE (UA) 1+ (NEGATIVE); URINE KETONE NEGATIVE (NEGATIVE); URINE LEUK ESTERASE NEGATIVE (NEGATIVE); URINE NITRITE NEGATIVE (NEGATIVE); URINE PROTEIN 3+ (NEGATIVE); URINE UROBILINOGEN NEGATIVE mg/dL (0.2-1.0)
[2018-07-26 23:23] LABS: URINE MUCUS RARE
[2018-07-27] MEDS: chlordiazePOXIDE HCL 25 MG CAPSULE PO SCH ×4 (05:43→22:09)
[2018-07-27] MEDS: ALBUTEROL SO4 2.5/IPRATROPIUM 0.5 INH SOL 3 ML VIAL.NEB. NEB SCH ×2 (08:30→17:09)
[2018-07-27 10:10] LABS: HEMATOCRIT 39.6 % (35.4-49); HEMOGLOBIN 12.7 GM/dL (11.7-16.9); MCH 31.1 pg (25.7-33.7); MCHC 32.1 g/dl (32.0-35.9); MEAN CELL VOLUME 96.7 fl (80-96); MEAN PLT VOLUME 8.7 fl (7.5-11.1); PLATELET COUNT 187 K/MM3 (134-434); RBC 4.09 M/mm3 (4.00-5.60); RDW 15.9 % (11.9-15.9); WHITE BLOOD COUNT 5.7 K/mm3 (4.0-10.0)
[2018-07-27] MEDS: TOLNAFTATE 1% CREAM 15 GM TUBE TP SCH ×2 (10:30→22:09)
[2018-07-27] MEDS: ASPIRIN 81 MG CHEWABLE TABLETS PO SCH (10:30)
[2018-07-27] MEDS: PRENATAL VITAMINS W/ FOLIC ACID TABLET (FP) PO SCH (10:30)
[2018-07-27] MEDS: NICOTINE 21 MG/24 HOURS TOPICAL PATCH TD SCH (10:31)
[2018-07-27 10:32] LABS: ALBUMIN 2.7 g/dl (3.4-5.0); ALK PHOS 77 U/L (45-117); ANION GAP 7 MMOL/L (8-16); BLOOD UREA NITROGEN 14 mg/dL (7-18); CALCIUM 8.8 mg/dL (8.5-10.1); CHLORIDE 96 mmol/L (98-107); CO2 34 mmol/L (21-32); CREATININE 0.8 mg/dL (0.55-1.3); GLUCOSE,RANDOM 127 mg/dL (74-106); POTASSIUM 3.7 mmol/L (3.5-5.1); SGOT/AST 19 U/L (15-37); SGPT/ALT 29 U/L (13-61); SODIUM 138 mmol/L (136-145); TOT PROT 6.1 g/dl (6.4-8.2)
[2018-07-27] MEDS: guaiFENesin 600 MG TABLET.ER (FP) PO SCH ×2 (11:00→22:09)
--- NOTE | 2018-07-27 13:11 | PN ---
[facility] CIWA - CIWA Score Nausea/Vomitin Muscle Tremors: 4-Moderate,w/Arms Extend Anxiety: 4-Mod. Anxious/Guarded Agitation: 4-Moderately Restless Paroxysmal Sweats: 3 Orientation: 0-Oriented Tacttile Disturbances: 0-None Auditory Disturbances: 0-None Visual Disturbances: 0-None Headache: 0-None Present CIWA-Ar Total Score: 17 BHS Progress Note (SOAP) Subjective: Tremor, chills, sweating, interrupted sleep, c/o frequent urination during the day and at night and denies dysuria. Objective: 07/27/18 13:08 Last Vital Signs Temp Pulse Resp BP Pulse Ox 96.4 F L 68 18 123/61 07/27/18 09:11 07/27/18 09:11 07/27/18 09:11 07/27/18 09:11 Laboratory Tests 07/26/18 07/26/18 07/26/18 16:17 19:18 22:00 WBC RBC Hgb Hct MCV MCH MCHC RDW Plt Count MPV Sodium Potassium Chloride Carbon Dioxide Anion Gap BUN Creatinine Creat Clearance w eGFR POC Glucometer 113 133 Random Glucose Hemoglobin A1c % Calcium Total Bilirubin AST ALT Alkaline Phosphatase Total Protein Albumin Urine Color Yellow Urine Appearance Clear Urine pH 6.0 Ur Specific [place] 1.024 Urine Protein 3+ H Urine Glucose (UA) 1+ H Urine Ketones Negative Urine Blood Negative Urine Nitrite Negative Urine Bilirubin Negative Urine Urobilinogen Negative Ur Leukocyte Esterase Negative Urine WBC (Auto) <1 Urine RBC (Auto) 1 Urine Mucus Rare RPR Titer 07/27/18 07/27/18 07/27/18 05:43 06:30 06:30 WBC 5.7 RBC 4.09 Hgb 12.7 Hct 39.6 MCV 96.7 H MCH 31.1 MCHC 32.1 RDW 15.9 D Plt Count 187 D MPV 8.7 Sodium 138 Potassium 3.7 Chloride 96 L Carbon Dioxide 34 H Anion Gap 7 L BUN 14 Creatinine 0.8 Creat Clearance w eGFR > 60 POC Glucometer 136 Random Glucose 127 H Hemoglobin A1c % Calcium 8.8 Total Bilirubin 1.0 AST 19 ALT 29 Alkaline Phosphatase 77 Total Protein 6.1 L Albumin 2.7 L Urine Color Urine Appearance Urine pH Ur Specific [place] Urine Protein Urine Glucose (UA) Urine Ketones Urine Blood Urine Nitrite Urine Bilirubin Urine Urobilinogen Ur Leukocyte Esterase Urine WBC (Auto) Urine RBC (Auto) Urine Mucus RPR Titer 07/27/18 07/27/18 06:30 06:30 WBC RBC Hgb Hct MCV MCH MCHC RDW Plt Count MPV Sodium Potassium Chloride Carbon Dioxide Anion Gap BUN Creatinine Creat Clearance w eGFR POC Glucometer Random Glucose Hemoglobin A1c % 6.6 H Calcium Total Bilirubin AST ALT Alkaline Phosphatase Total Protein Albumin Urine Color Urine Appearance Urine pH Ur Specific [place] Urine Protein Urine Glucose (UA) Urine Ketones Urine Blood Urine Nitrite Urine Bilirubin Urine Urobilinogen Ur Leukocyte Esterase Urine WBC (Auto) Urine RBC (Auto) Urine Mucus RPR Titer Nonreactive Labs reviewed: abnormal UA (proteinuria and glycosuria), A1c 6.6%, serum glucose 127 Assessment: 07/27/18 13:10 Withdrawal symptoms Noted with DMT2 with hyperglycemia and abnormal UA (patient reported h/o DM and never on medication) Plan: Continue detox DMT2 with hyperglycemia: start finger stick glucose AC TID with insulin sliding scale, start metformin 500mg PO BID (patient was on metformin 500mg bid in the past but noncompliant) Abnormal UA: encouraged PO water intake, send urine cx Polyuria: most likely due to DM, will send urine culture
--- NOTE | 2018-07-27 16:07 | EKG ---
Test Reason : Blood Pressure : / mmHG Vent. Rate : 062 BPM Atrial Rate : 062 BPM P-R Int : 146 ms QRS Dur : 082 ms QT Int : 422 ms P-R-T Axes : 063 059 057 degrees QTc Int : 428 ms NORMAL SINUS RHYTHM NORMAL ECG WHEN COMPARED WITH ECG OF 20-JAN-2017 22:29, NO SIGNIFICANT CHANGE WAS FOUND Confirmed by MD LAMB PENG ([id number]) on 07/27/2018 4:06:33 PM Referred By: Confirmed By:DANIELA LAMB MD
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
[2018-07-27] MEDS: metFORMIN HCL 500 MG TABLET (FP) PO SCH (17:04)
[2018-07-27] MEDS: INSULIN SLIDING SCALE (NOVOLOG) 1 VIAL SQ SCH (17:05)
[2018-07-27] MEDS ORDERED: ALBUTEROL SO4 0.083% IH SOL 2.5 MG/3 ML VIAL.NEB. NEB PRN (20:00)
[2018-07-27] MEDS: THIAMINE HCL 100 MG TABLET (FP) PO SCH (22:09)
[2018-07-27] MEDS: MELATONIN 5 MG TABLETS PO PRN (22:10)
[2018-07-28] MEDS: chlordiazePOXIDE HCL 25 MG CAPSULE PO SCH ×3 (05:33→17:38)
[2018-07-28] MEDS: metFORMIN HCL 500 MG TABLET (FP) PO SCH ×2 (07:35→16:40)
[2018-07-28] MEDS: INSULIN SLIDING SCALE (NOVOLOG) 1 VIAL SQ SCH ×3 (07:35→16:52)
[2018-07-28] MEDS: PRENATAL VITAMINS W/ FOLIC ACID TABLET (FP) PO SCH (10:20)
[2018-07-28] MEDS: TOLNAFTATE 1% CREAM 15 GM TUBE TP SCH ×2 (10:21→22:15)
[2018-07-28] MEDS: NICOTINE 21 MG/24 HOURS TOPICAL PATCH TD SCH (10:21)
[2018-07-28] MEDS: ASPIRIN 81 MG CHEWABLE TABLETS PO SCH (10:21)
[2018-07-28] MEDS: guaiFENesin 600 MG TABLET.ER (FP) PO SCH ×2 (10:21→22:15)
--- NOTE | 2018-07-28 14:47 | PN ---
S CIWA - CIWA Score Nausea/Vomitin Muscle Tremors: 3 Anxiety: 3 Agitation: 2 Paroxysmal Sweats: 3 Orientation: 0-Oriented Tacttile Disturbances: 0-None Auditory Disturbances: 0-None Visual Disturbances: 0-None Headache: 0-None Present CIWA-Ar Total Score: 13 BHS Progress Note (SOAP) Subjective: Tremor, stomach ache Objective: 07/28/18 14:42 Last Vital Signs Temp Pulse Resp BP Pulse Ox 97.4 F L 75 18 126/78 07/28/18 09:07 07/28/18 09:07 07/28/18 09:07 07/28/18 09:07 Laboratory Tests 07/26/18 07/26/18 07/26/18 16:17 19:18 22:00 WBC RBC Hgb Hct MCV MCH MCHC RDW Plt Count MPV Sodium Potassium Chloride Carbon Dioxide Anion Gap BUN Creatinine Creat Clearance w eGFR POC Glucometer 113 133 Random Glucose Hemoglobin A1c % Calcium Total Bilirubin AST ALT Alkaline Phosphatase Total Protein Albumin Urine Color Yellow Urine Appearance Clear Urine pH 6.0 Ur Specific [place] 1.024 Urine Protein 3+ H Urine Glucose (UA) 1+ H Urine Ketones Negative Urine Blood Negative Urine Nitrite Negative Urine Bilirubin Negative Urine Urobilinogen Negative Ur Leukocyte Esterase Negative Urine WBC (Auto) <1 Urine RBC (Auto) 1 Urine Mucus Rare RPR Titer 07/27/18 07/27/18 07/27/18 05:43 06:30 06:30 WBC 5.7 RBC 4.09 Hgb 12.7 Hct 39.6 MCV 96.7 H MCH 31.1 MCHC 32.1 RDW 15.9 D Plt Count 187 D MPV 8.7 Sodium 138 Potassium 3.7 Chloride 96 L Carbon Dioxide 34 H Anion Gap 7 L BUN 14 Creatinine 0.8 Creat Clearance w eGFR > 60 POC Glucometer 136 Random Glucose 127 H Hemoglobin A1c % Calcium 8.8 Total Bilirubin 1.0 AST 19 ALT 29 Alkaline Phosphatase 77 Total Protein 6.1 L Albumin 2.7 L Urine Color Urine Appearance Urine pH Ur Specific [place] Urine Protein Urine Glucose (UA) Urine Ketones Urine Blood Urine Nitrite Urine Bilirubin Urine Urobilinogen Ur Leukocyte Esterase Urine WBC (Auto) Urine RBC (Auto) Urine Mucus RPR Titer 07/27/18 07/27/18 07/27/18 06:30 06:30 16:17 WBC RBC Hgb Hct MCV MCH MCHC RDW Plt Count MPV Sodium Potassium Chloride Carbon Dioxide Anion Gap BUN Creatinine Creat Clearance w eGFR POC Glucometer 156 Random Glucose Hemoglobin A1c % 6.6 H Calcium Total Bilirubin AST ALT Alkaline Phosphatase Total Protein Albumin Urine Color Urine Appearance Urine pH Ur Specific [place] Urine Protein Urine Glucose (UA) Urine Ketones Urine Blood Urine Nitrite Urine Bilirubin Urine Urobilinogen Ur Leukocyte Esterase Urine WBC (Auto) Urine RBC (Auto) Urine Mucus RPR Titer Nonreactive 07/28/18 07/28/18 05:33 11:27 WBC RBC Hgb Hct MCV MCH MCHC RDW Plt Count MPV Sodium Potassium Chloride Carbon Dioxide Anion Gap BUN Creatinine Creat Clearance w eGFR POC Glucometer 129 123 Random Glucose Hemoglobin A1c % Calcium Total Bilirubin AST ALT Alkaline Phosphatase Total Protein Albumin Urine Color Urine Appearance Urine pH Ur Specific [place] Urine Protein Urine Glucose (UA) Urine Ketones Urine Blood Urine Nitrite Urine Bilirubin Urine Urobilinogen Ur Leukocyte Esterase Urine WBC (Auto) Urine RBC (Auto) Urine Mucus RPR Titer Labs reviewed: increased glucose, abnormal UA Assessment: 07/28/18 14:43 Withdrawal symptoms Hyperglycemia secondary to DMT2 Noted with abnormal UA Plan: Continue detox Hyperglycemia secondary to DMT2: continue present regimen, encouraged adherence to diabetic regimen and diet Abnormal UA: follow up on urine culture (pending result), encouraged PO water hydration
[2018-07-28] MEDS: THIAMINE HCL 100 MG TABLET (FP) PO SCH (22:15)
[2018-07-28] MEDS: MELATONIN 5 MG TABLETS PO PRN (22:16)
[2018-07-28] MEDS: chlordiazePOXIDE 5 MG CAPSULE PO SCH (22:16)
[2018-07-29] MEDS: chlordiazePOXIDE 5 MG CAPSULE PO SCH ×3 (05:24→17:31)
[2018-07-29] MEDS: metFORMIN HCL 500 MG TABLET (FP) PO SCH ×2 (06:10→16:40)
[2018-07-29] MEDS: INSULIN SLIDING SCALE (NOVOLOG) 1 VIAL SQ SCH ×3 (06:11→17:06)
[2018-07-29] MEDS: PRENATAL VITAMINS W/ FOLIC ACID TABLET (FP) PO SCH (10:10)
[2018-07-29] MEDS: TOLNAFTATE 1% CREAM 15 GM TUBE TP SCH ×2 (10:11→22:08)
[2018-07-29] MEDS: NICOTINE 21 MG/24 HOURS TOPICAL PATCH TD SCH (10:11)
[2018-07-29] MEDS: ASPIRIN 81 MG CHEWABLE TABLETS PO SCH (10:11)
[2018-07-29] MEDS: guaiFENesin 600 MG TABLET.ER (FP) PO SCH (11:43)
--- NOTE | 2018-07-29 12:42 | PN ---
B[facility] Progress Note (SOAP) Subjective: Chills, diarrhea Objective: 07/29/18 12:40 Last Vital Signs Temp Pulse Resp BP Pulse Ox 97.9 F 81 20 136/79 07/29/18 09:33 07/29/18 09:33 07/29/18 09:33 07/29/18 09:33 Laboratory Tests 07/26/18 07/26/18 07/26/18 16:17 19:18 22:00 WBC RBC Hgb Hct MCV MCH MCHC RDW Plt Count MPV Sodium Potassium Chloride Carbon Dioxide Anion Gap BUN Creatinine Creat Clearance w eGFR POC Glucometer 113 133 Random Glucose Hemoglobin A1c % Calcium Total Bilirubin AST ALT Alkaline Phosphatase Total Protein Albumin Urine Color Yellow Urine Appearance Clear Urine pH 6.0 Ur Specific [place] 1.024 Urine Protein 3+ H Urine Glucose (UA) 1+ H Urine Ketones Negative Urine Blood Negative Urine Nitrite Negative Urine Bilirubin Negative Urine Urobilinogen Negative Ur Leukocyte Esterase Negative Urine WBC (Auto) <1 Urine RBC (Auto) 1 Urine Mucus Rare RPR Titer 07/27/18 07/27/18 07/27/18 05:43 06:30 06:30 WBC 5.7 RBC 4.09 Hgb 12.7 Hct 39.6 MCV 96.7 H MCH 31.1 MCHC 32.1 RDW 15.9 D Plt Count 187 D MPV 8.7 Sodium 138 Potassium 3.7 Chloride 96 L Carbon Dioxide 34 H Anion Gap 7 L BUN 14 Creatinine 0.8 Creat Clearance w eGFR > 60 POC Glucometer 136 Random Glucose 127 H Hemoglobin A1c % Calcium 8.8 Total Bilirubin 1.0 AST 19 ALT 29 Alkaline Phosphatase 77 Total Protein 6.1 L Albumin 2.7 L Urine Color Urine Appearance Urine pH Ur Specific [place] Urine Protein Urine Glucose (UA) Urine Ketones Urine Blood Urine Nitrite Urine Bilirubin Urine Urobilinogen Ur Leukocyte Esterase Urine WBC (Auto) Urine RBC (Auto) Urine Mucus RPR Titer 07/27/18 07/27/18 07/27/18 06:30 06:30 16:17 WBC RBC Hgb Hct MCV MCH MCHC RDW Plt Count MPV Sodium Potassium Chloride Carbon Dioxide Anion Gap BUN Creatinine Creat Clearance w eGFR POC Glucometer 156 Random Glucose Hemoglobin A1c % 6.6 H Calcium Total Bilirubin AST ALT Alkaline Phosphatase Total Protein Albumin Urine Color Urine Appearance Urine pH Ur Specific [place] Urine Protein Urine Glucose (UA) Urine Ketones Urine Blood Urine Nitrite Urine Bilirubin Urine Urobilinogen Ur Leukocyte Esterase Urine WBC (Auto) Urine RBC (Auto) Urine Mucus RPR Titer Nonreactive 07/28/18 07/28/18 07/28/18 05:33 11:27 16:30 WBC RBC Hgb Hct MCV MCH MCHC RDW Plt Count MPV Sodium Potassium Chloride Carbon Dioxide Anion Gap BUN Creatinine Creat Clearance w eGFR POC Glucometer 129 123 125 Random Glucose Hemoglobin A1c % Calcium Total Bilirubin AST ALT Alkaline Phosphatase Total Protein Albumin Urine Color Urine Appearance Urine pH Ur Specific [place] Urine Protein Urine Glucose (UA) Urine Ketones Urine Blood Urine Nitrite Urine Bilirubin Urine Urobilinogen Ur Leukocyte Esterase Urine WBC (Auto) Urine RBC (Auto) Urine Mucus RPR Titer 07/29/18 07/29/18 05:23 11:45 WBC RBC Hgb Hct MCV MCH MCHC RDW Plt Count MPV Sodium Potassium Chloride Carbon Dioxide Anion Gap BUN Creatinine Creat Clearance w eGFR POC Glucometer 137 132 Random Glucose Hemoglobin A1c % Calcium Total Bilirubin AST ALT Alkaline Phosphatase Total Protein Albumin Urine Color Urine Appearance Urine pH Ur Specific [place] Urine Protein Urine Glucose (UA) Urine Ketones Urine Blood Urine Nitrite Urine Bilirubin Urine Urobilinogen Ur Leukocyte Esterase Urine WBC (Auto) Urine RBC (Auto) Urine Mucus RPR Titer Labs reviewed: abnormal UA Assessment: 07/29/18 12:41 Withdrawal symptoms Noted with abnormal UA Plan: Continue detox Abnormal UA: encouraged PO water intake, follow up on urine culture result ( pending)
[2018-07-29] MEDS: MELATONIN 5 MG TABLETS PO PRN (22:08)
[2018-07-29] MEDS: THIAMINE HCL 100 MG TABLET (FP) PO SCH (22:08)
[2018-07-29] MEDS: chlordiazePOXIDE HCL 10 MG CAPSULE PO SCH (22:08)
[2018-07-30] MEDS: chlordiazePOXIDE HCL 10 MG CAPSULE PO SCH ×2 (05:49→10:28)
[2018-07-30] MEDS: metFORMIN HCL 500 MG TABLET (FP) PO SCH (06:14)
[2018-07-30] MEDS: INSULIN SLIDING SCALE (NOVOLOG) 1 VIAL SQ SCH ×2 (06:17→10:55)
[2018-07-30] MEDS: PRENATAL VITAMINS W/ FOLIC ACID TABLET (FP) PO SCH (09:50)
[2018-07-30] MEDS: NICOTINE 21 MG/24 HOURS TOPICAL PATCH TD SCH (09:50)
[2018-07-30] MEDS: ASPIRIN 81 MG CHEWABLE TABLETS PO SCH (09:50)
[2018-07-30] MEDS: TOLNAFTATE 1% CREAM 15 GM TUBE TP SCH (09:51)
[2018-07-30 09:57] VITALS: BP 112/71; PULSE 85; TEMP 97.4
--- NOTE | 2018-07-30 11:30 | DS ---
[facility] Detox Discharge Summary Admission Date: 07/26/18 Discharge Date: 07/30/18 - History Present History: Alcohol Dependence Additional Comments: Patient for discharge today. He was accepted for inpatient rehab at [facility] but changed his mind and requested to be discharged home instead. Patient is A,A ,Ox3, in nad, ambulatory. He denies any complaints. Pertinent Past History: DMT2 with hyperglycemia Alcohol dependence Asthma Morbid obesity Nicotine dependence HTN Hypothyroidism - Physical Exam Results Vital Signs: Vital Signs Temperature 97.4 F L 07/30/18 09:57 Pulse Rate 85 07/30/18 09:57 Respiratory Rate 17 07/30/18 09:57 Blood Pressure 112/71 07/30/18 09:57 O2 Sat by Pulse Oximetry (%) Pertinent Admission Physical Exam Findings: Withdrawal symptoms Laboratory Tests 07/26/18 07/26/18 07/26/18 16:17 19:18 22:00 WBC RBC Hgb Hct MCV MCH MCHC RDW Plt Count MPV Sodium Potassium Chloride Carbon Dioxide Anion Gap BUN Creatinine Creat Clearance w eGFR POC Glucometer 113 133 Random Glucose Hemoglobin A1c % Calcium Total Bilirubin AST ALT Alkaline Phosphatase Total Protein Albumin Urine Color Yellow Urine Appearance Clear Urine pH 6.0 Ur Specific [place] 1.024 Urine Protein 3+ H Urine Glucose (UA) 1+ H Urine Ketones Negative Urine Blood Negative Urine Nitrite Negative Urine Bilirubin Negative Urine Urobilinogen Negative Ur Leukocyte Esterase Negative Urine WBC (Auto) <1 Urine RBC (Auto) 1 Urine Mucus Rare RPR Titer 07/27/18 07/27/18 07/27/18 05:43 06:30 06:30 WBC 5.7 RBC 4.09 Hgb 12.7 Hct 39.6 MCV 96.7 H MCH 31.1 MCHC 32.1 RDW 15.9 D Plt Count 187 D MPV 8.7 Sodium 138 Potassium 3.7 Chloride 96 L Carbon Dioxide 34 H Anion Gap 7 L BUN 14 Creatinine 0.8 Creat Clearance w eGFR > 60 POC Glucometer 136 Random Glucose 127 H Hemoglobin A1c % Calcium 8.8 Total Bilirubin 1.0 AST 19 ALT 29 Alkaline Phosphatase 77 Total Protein 6.1 L Albumin 2.7 L Urine Color Urine Appearance Urine pH Ur Specific [place] Urine Protein Urine Glucose (UA) Urine Ketones Urine Blood Urine Nitrite Urine Bilirubin Urine Urobilinogen Ur Leukocyte Esterase Urine WBC (Auto) Urine RBC (Auto) Urine Mucus RPR Titer 07/27/18 07/27/18 07/27/18 06:30 06:30 16:17 WBC RBC Hgb Hct MCV MCH MCHC RDW Plt Count MPV Sodium Potassium Chloride Carbon Dioxide Anion Gap BUN Creatinine Creat Clearance w eGFR POC Glucometer 156 Random Glucose Hemoglobin A1c % 6.6 H Calcium Total Bilirubin AST ALT Alkaline Phosphatase Total Protein Albumin Urine Color Urine Appearance Urine pH Ur Specific [place] Urine Protein Urine Glucose (UA) Urine Ketones Urine Blood Urine Nitrite Urine Bilirubin Urine Urobilinogen Ur Leukocyte Esterase Urine WBC (Auto) Urine RBC (Auto) Urine Mucus RPR Titer Nonreactive 07/28/18 07/28/18 07/28/18 05:33 11:27 16:30 WBC RBC Hgb Hct MCV MCH MCHC RDW Plt Count MPV Sodium Potassium Chloride Carbon Dioxide Anion Gap BUN Creatinine Creat Clearance w eGFR POC Glucometer 129 123 125 Random Glucose Hemoglobin A1c % Calcium Total Bilirubin AST ALT Alkaline Phosphatase Total Protein Albumin Urine Color Urine Appearance Urine pH Ur Specific [place] Urine Protein Urine Glucose (UA) Urine Ketones Urine Blood Urine Nitrite Urine Bilirubin Urine Urobilinogen Ur Leukocyte Esterase Urine WBC (Auto) Urine RBC (Auto) Urine Mucus RPR Titer 07/29/18 07/29/18 07/29/18 05:23 11:45 16:32 WBC RBC Hgb Hct MCV MCH MCHC RDW Plt Count MPV Sodium Potassium Chloride Carbon Dioxide Anion Gap BUN Creatinine Creat Clearance w eGFR POC Glucometer 137 132 149 Random Glucose Hemoglobin A1c % Calcium Total Bilirubin AST ALT Alkaline Phosphatase Total Protein Albumin Urine Color Urine Appearance Urine pH Ur Specific [place] Urine Protein Urine Glucose (UA) Urine Ketones Urine Blood Urine Nitrite Urine Bilirubin Urine Urobilinogen Ur Leukocyte Esterase Urine WBC (Auto) Urine RBC (Auto) Urine Mucus RPR Titer 07/30/18 05:48 WBC RBC Hgb Hct MCV MCH MCHC RDW Plt Count MPV Sodium Potassium Chloride Carbon Dioxide Anion Gap BUN Creatinine Creat Clearance w eGFR POC Glucometer 135 Random Glucose Hemoglobin A1c % Calcium Total Bilirubin AST ALT Alkaline Phosphatase Total Protein Albumin Urine Color Urine Appearance Urine pH Ur Specific [place] Urine Protein Urine Glucose (UA) Urine Ketones Urine Blood Urine Nitrite Urine Bilirubin Urine Urobilinogen Ur Leukocyte Esterase Urine WBC (Auto) Urine RBC (Auto) Urine Mucus RPR Titer Labs reviewed: abnormal UA and hyperglycemia due to DMT2. Patient instructed to follow up with his PCP within 1-2 weeks. - Treatment Hospital Course: Detox Protocol Followed, Detoxed Safely, Responded well, Discharged Condition Good - Medication Discharge Medications: Ambulatory Orders Aspirin [ASA -] 81 mg PO DAILY #30 tab.chew 06/02/15 Atorvastatin Ca [Lipitor] 40 mg PO HS 02/18/16 Fluoxetine HCl [Prozac -] 40 mg PO DAILY #30 capsule 02/18/16 Ipratropium/Albuterol Sulfate [Combivent Respimat 20-100 Mcg] 1 puff IH BID Albuterol Sulfate Inhaler - [Ventolin HFA Inhaler -] 2 inh PO Q4H PRN #1 can 02/10 Clopidogrel Bisulfate [Plavix -] 75 mg PO DAILY #30 tablet 03/02/16 Enalapril Maleate [Vasotec -] 5 mg PO DAILY #30 tablet 03/02/16 metFORMIN HCL [Glucophage -] 500 mg PO BID #60 tablet 03/02/16 Famotidine [Pepcid -] 20 mg PO DAILY 11/17/16 Gabapentin [Neurontin -] 100 mg PO TID 11/17/16 Levothyroxine [Synthroid -] 75 mg PO DAILY 11/17/16 Montelukast Na [Singulair -] 10 mg PO HS 11/17/16 - Diagnosis (1) Abnormal finding on urinalysis Status: Acute (2) Type 2 diabetes mellitus with hyperglycemia Status: Chronic (3) Alcohol dependence with uncomplicated withdrawal Status: Acute (4) Tinea pedis Status: Acute Qualifiers: Laterality: bilateral Qualified Code(s): B35.3 - Tinea pedis (5) Asthma Status: Chronic (6) Morbid obesity with BMI of 45.0-49.9, adult Status: Chronic (7) Nicotine dependence Status: Acute Qualifiers: Nicotine product type: cigarettes Substance use status: uncomplicated Qualified Code(s): F17.210 - Nicotine dependence, cigarettes, uncomplicated (8) Essential hypertension Status: Chronic (9) Hypothyroidism Status: Suspected Qualifiers: Hypothyroidism type: unspecified Qualified Code(s): E03.9 - Hypothyroidism , unspecified (10) Polyuria Status: Chronic - AMA Did Patient Leave Against Medical Advice: No (F/U with your PCP within 1-2 weeks )
== END 2018-07-30 09:41 | disposition home or self-care (01) | DRG 775 ==
LOC: YASAS 11:49 → Y3N 18:45
PROC: HZ2ZZZZ Detoxification Services for Substance Abuse Treatment (ICD-10-PCS; principal; 2018-07-26)
DX: F10.230 Alcohol dependence with withdrawal, uncomplicated (principal); F17.210 Nicotine dependence, cigarettes, uncomplicated; F19.24 Other psychoactive substance dependence with psychoactive substance-induced mood disorder; I10 Essential (primary) hypertension; E11.65 Type 2 diabetes mellitus with hyperglycemia; Z79.84 Long term (current) use of oral hypoglycemic drugs; E03.9 Hypothyroidism, unspecified; K21.9 Gastro-esophageal reflux disease without esophagitis; B35.3 Tinea pedis; J45.20 Mild intermittent asthma, uncomplicated; R35.8 Other polyuria; R82.90 Unspecified abnormal findings in urine; I25.10 Atherosclerotic heart disease of native coronary artery without angina pectoris; Z95.5 Presence of coronary angioplasty implant and graft; H55.00 Unspecified nystagmus; E66.01 Morbid (severe) obesity due to excess calories; Z68.42 Body mass index [BMI] 45.0-49.9, adult
CPT/HCPCS: 36415; 80053; 81003; 81015; 82962; 83036; 84436; 85027; 86593; 87086; 93005; 93010; 94640

== ENCOUNTER 2018-09-02 11:16 | Inpatient (IN) | payer OTHER ==
[2018-09-02 11:55] VITALS: BMI 45.0
--- NOTE | 2018-09-02 13:37 | HP ---
CIWA Score Nausea/Vomitin Muscle Tremors: 2 Anxiety: 2 Agitation: 2 Paroxysmal Sweats: 1-Minimal Palms Moist Orientation: 0-Oriented Tacttile Disturbances: 1-Very Mild Itch/Numbness Auditory Disturbances: 1-Very Mild Visual Disturbances: 0-None Headache: 2-Mild CIWA-Ar Total Score: 13 - Admission Criteria OASAS Guidelines: Admission for Medically Managed Detox: Requires at least one of the followin. CIWA greater than 12 2. Seizures within the past 24 hours 3. Delirium tremens within the past 24 hours 4. Hallucinations within the past 24 hours 5. Acute intervention needed for co occurring medical disorder 6. Acute intervention needed for co occurring psychiatric disorder 7. Severe withdrawal that cannot be handled at a lower level of care (continued vomiting, continued diarrhea, abnormal vital signs) requiring intravenous medication and/or fluids 8. Patient presents the following: CIWA greater than 12 Admission Criteria Met: Admission criteria met Admission ROS BHS - HPI Chief Complaint: i need help to stop drinking alcohol and marijuana Allergies/Adverse Reactions: Allergies Allergy/AdvReac Type Severity Reaction Status Date / Time No Known Allergies Allergy Verified 09/02/18 13:59 History of Present Illness: this 58 years old male with alcohol and marijuana dependence,seeking detox,last detox [facility] 07/26/18 to 07/30/18 not completed history of asthma,copd seen in [facility] last night nicotine dependence multiple admissions in detox plan to go to rehab after detox Exam Limitations: No Limitations - Ebola screening Have you traveled outside of the country in the last 21 days: No Have you had contact with anyone from an Ebola affected area: No Have you been sick,other than usual withdrawal symptoms: No Do you have a fever: No - Review of Systems Constitutional: Loss of Appetite, Malaise, Night Sweats, Changes in sleep, Weakness EENT: reports: Nose Congestion Respiratory: reports: No Symptoms reported Cardiac: reports: No Symptoms Reported GI: reports: Nausea, Vomiting, Abdominal cramping : reports: No Symptoms Reported Musculoskeletal: reports: Back Pain, Muscle Pain Integumentary: reports: Dryness Neuro: reports: Headache, Tremors Endocrine: reports: No Symptoms Reported Hematology: reports: No Symptoms Reported Psychiatric: reports: No Sypmtoms Reported, Judgement Intact, Mood/Affect Appropiate, Orientated x3 Patient History - Patient Medical History Hx Anemia: No Hx Asthma: Yes (Has an inhaler) Hx Chronic Obstructive Pulmonary Disease (COPD): Yes (on albuterol inhaler) Hx Cancer: No Hx Cardiac Disorders: No Hx Congestive Heart Failure: No Hx Hypertension: Yes (Not on meds) Hx Hypercholesterolemia: No Hx Pacemaker: No HX Cerebrovascular Accident: No Hx Seizures: No Hx Dementia: No Hx Diabetes: Yes (NIDDM - States not on medications) Hx Gastrointestinal Disorders: Yes (acid reflux r/t alcohol use - not on meds ) Hx Liver Disease: No Hx Genitourinary Disorders: No Hx Sexually Transmitted Disorders: No Hx Renal Disease (ESRD): No Hx Thyroid Disease: No Hx Human Immunodeficiency Virus (HIV): No (NEGATIVE HX LAST 09/12 ) Hx Hepatitis C: No Hx Depression: Yes (Denies thoughts of harming self or others) Hx Suicide Attempt: No Hx Bipolar Disorder: No Hx Schizophrenia: No Other Medical History: no suicidal,no homicidal - Patient Surgical History Past Surgical History: Yes Hx Neurologic Surgery: No Hx Cataract Extraction: No Hx Cardiac Surgery: Yes (1 stent in 2002) Hx Lung Surgery: No Hx Breast Surgery: No Hx Breast Biopsy: No Hx Abdominal Surgery: No Hx Appendectomy: No Hx Cholecystectomy: No Hx Genitourinary Surgery: No Hx Section: No Hx Orthopedic Surgery: No Other Surgical History: coronary angioplasty in 2002 Anesthesia Reaction: No - PPD History Previous Implant?: Yes Documented Results: Negative w/proof Date: 07/28/18 Results: 0 mm PPD to be Administered?: No - Smoking Cessation Smoking history: Current every day smoker Have you smoked in the past 12 months: Yes Aproximately how many cigarettes per day: 10 Cigars Per Day: 0 Hx Chewing Tobacco Use: No Initiated information on smoking cessation: Yes 'Breaking Loose' booklet given: 09/02/18 - Substance & Tx. History Hx Alcohol Use: Yes Hx Substance Use: Yes Substance Use Type: Alcohol, Marijuana Hx Substance Use Treatment: Yes ([facility] 07/26/18 to 07/30/18) - Substances Abused Alcohol Route: Oral Frequency: Daily Amount used: 2 pints of voida Age of first use: 12 Date of Last Use: 09/01/18 Marijuana/Hashish Route: Smoking Frequency: Daily Amount used: 15$ Age of first use: 15 Date of Last Use: 09/01/18 Family Disease History - Family Disease History Family Disease History: Diabetes: Mother (LEUKEMIA,), Brother (alcohol, ,dsa), Other: Father (chronic alcoholism , age 47), Mother, Brother Admission Physical Exam [facility] - Vital Signs Vital Signs: Vital Signs - 24 hr 09/02/18 11:52 Temperature 98.8 F Pulse Rate 101 H Respiratory 18 Rate Blood Pressure 152/67 - Physical General Appearance: Yes: Moderate Distress, Tremorous, Irritable, Sweating, Anxious HEENTM: Yes: Normal ENT Inspection, ELIAZAR, Pharynx Normal Respiratory: Yes: Within Normal Limits, Lungs Clear, Normal Breath Sounds Neck: Yes: Within Normal Limits, Supple, Trachea in good position Breast: Yes: Within Normal Limits Cardiology: Yes: Tachycardia Abdominal: Yes: Within Normal Limits, Normal Bowel Sounds, Soft Back: Yes: Muscle Spasm Musculoskeletal: Yes: Back pain, Muscle Pain Extremities: Yes: Tremors Neurological: Yes: managed care liaison II-XII NML intact, Fully Oriented, Alert, Motor Strength 5/5 Integumentary: Yes: Dry, Other (blisters both platar surface of both feet) Lymphatic: Yes: Within Normal Limits - Diagnostic (1) Alcohol dependence with uncomplicated withdrawal Current Visit: No Status: Acute Comment: CHAN 0.132 (2) Cannabis dependence Current Visit: No Status: Acute (3) Asthma Current Visit: No Status: Chronic (4) Coronary artery disease Current Visit: No Status: Chronic Qualifiers: Coronary Disease-Associated Artery/Lesion type: [place] artery [place] vs. transplanted heart: [place] heart Associated angina: without angina Qualified Code(s): I25.10 - Atherosclerotic heart disease of [place] coronary artery without angina pectoris Comment: Stent 2002. (5) Essential hypertension Current Visit: No Status: Chronic (6) Neuropathy, alcoholic Current Visit: No Status: Chronic (7) DM Diabetes mellitus type 2 Current Visit: No Status: Suspected Comment: last BGM 113 (8) Friction blister of the foot Current Visit: Yes Status: Acute Cleared for Admission [facility] - Detox or Rehab [facility] Level of Care: Medically Managed Detox Regimen/Protocol: Librium [facility] Breath Alcohol Content Breath Alcohol Content: 0 Urine Drug Screen - Results Drug Screen Negative: No Urine Drug Screen Results: THC-Marijuana, BZO-Benzodiazepines
[2018-09-02] MEDS ORDERED: P-EPHED 60MG/TRIPROLIDI 2.5MG TABLET PO PRN (13:44)
[2018-09-02] MEDS ORDERED: MAGNESIUM HYDROX 2400MG/30ML ORAL SUSPENSION 30 ML CUP PO PRN (13:44)
[2018-09-02] MEDS ORDERED: MAGNESIUM CITRATE 300 ML BOTTLE PO PRN (13:44)
[2018-09-02] MEDS ORDERED: LOPERAMIDE HCL 2 MG CAPSULE PO PRN (13:44)
[2018-09-02] MEDS ORDERED: IBUPROFEN 400 MG TABLET (FP) PO PRN (13:44)
[2018-09-02] MEDS ORDERED: ACETAMINOPHEN 325 MG TABLET (FP) PO PRN (13:44)
[2018-09-02] MEDS ORDERED: guaiFENesin/D-METHORPHAN HB 10 ML UNIT-DOSE CUPS PO PRN (13:44)
[2018-09-02] MEDS ORDERED: hydrOXYzine PAMOATE 50 MG CAPSULE (FP) PO PRN (13:44)
[2018-09-02] MEDS ORDERED: chlordiazePOXIDE HCL 25 MG CAPSULE PO PRN (13:44)
[2018-09-02] MEDS ORDERED: MENTHOL/PHENOL 1 EACH UD MM PRN (13:44)
[2018-09-02] MEDS ORDERED: MAG HYDROX/AL HYDROX/SIMETH 30 ML UNIT-DOSE CUP PO PRN (13:44)
[2018-09-02] MEDS: FUROSEMIDE 40 MG TABLET (FP) PO SCH (15:58)
[2018-09-02] MEDS: chlordiazePOXIDE HCL 25 MG CAPSULE PO SCH ×2 (17:18→22:19)
[2018-09-02] MEDS ORDERED: MELATONIN 5 MG TABLETS PO PRN (22:00)
[2018-09-02] MEDS: THIAMINE HCL 100 MG TABLET (FP) PO SCH (22:19)
[2018-09-02] MEDS: SILVER SULFADIAZINE 1% TOP CREAM 50 GM JAR TP SCH (23:14)
[2018-09-03] MEDS: chlordiazePOXIDE HCL 25 MG CAPSULE PO SCH ×4 (06:12→22:39)
[2018-09-03 10:11] LABS: HEMATOCRIT 38.9 % (35.4-49); HEMOGLOBIN 13.3 GM/dL (11.7-16.9); MCH 33.2 pg (25.7-33.7); MCHC 34.3 g/dl (32.0-35.9); MEAN CELL VOLUME 96.5 fl (80-96); MEAN PLT VOLUME 9.8 fl (7.5-11.1); PLATELET COUNT 182 K/MM3 (134-434); RBC 4.02 M/mm3 (4.00-5.60); WHITE BLOOD COUNT 7.3 K/mm3 (4.0-10.0)
[2018-09-03] MEDS: PRENATAL VITAMINS W/ FOLIC ACID TABLET (FP) PO SCH (10:11)
[2018-09-03] MEDS: FUROSEMIDE 40 MG TABLET (FP) PO SCH (10:11)
[2018-09-03] MEDS: SILVER SULFADIAZINE 1% TOP CREAM 50 GM JAR TP SCH ×2 (10:11→22:39)
[2018-09-03] MEDS: NICOTINE 21 MG/24 HOURS TOPICAL PATCH TD SCH (10:13)
[2018-09-03 11:35] LABS: ALBUMIN 3.1 g/dl (3.4-5.0); ALK PHOS 92 U/L (45-117); ANION GAP 13 MMOL/L (8-16); BILIRUBIN,TOTAL 0.6 mg/dL (0.2-1); BLOOD UREA NITROGEN 20 mg/dL (7-18); CALCIUM 8.8 mg/dL (8.5-10.1); CHLORIDE 105 mmol/L (98-107); CO2 25 mmol/L (21-32); CREATININE 1.3 mg/dL (0.55-1.3); GLUCOSE,RANDOM 121 mg/dL (74-106); POTASSIUM 3.8 mmol/L (3.5-5.1); SGOT/AST 47 U/L (15-37); SODIUM 142 mmol/L (136-145); TOT PROT 6.2 g/dl (6.4-8.2)
[2018-09-03 11:57] LABS: SGPT/ALT 58 U/L (13-61)
--- NOTE | 2018-09-03 12:10 | PN ---
S CIWA - CIWA Score Nausea/Vomitin-No Nausea/No Vomiting Muscle Tremors: 3 Anxiety: 3 Agitation: 3 Paroxysmal Sweats: 3 Orientation: 0-Oriented Tacttile Disturbances: 0-None Auditory Disturbances: 0-None Visual Disturbances: 0-None Headache: 0-None Present CIWA-Ar Total Score: 12 BHS Progress Note (SOAP) Subjective: tired sweats shakes interrupted sleep irritable body aches Objective: 09/03/18 12:08 Vital Signs Temperature 97.9 F 09/03/18 11:42 Pulse Rate 91 H 09/03/18 11:42 Respiratory Rate 18 09/03/18 11:42 Blood Pressure 157/87 09/03/18 11:42 O2 Sat by Pulse Oximetry (%) Laboratory Tests 09/02/18 09/02/18 09/03/18 14:14 17:01 06:00 WBC 7.3 RBC 4.02 Hgb 13.3 Hct 38.9 MCV 96.5 H MCH 33.2 MCHC 34.3 RDW 18.0 H Plt Count 182 MPV 9.8 D Sodium Potassium Chloride Carbon Dioxide Anion Gap BUN Creatinine Creat Clearance w eGFR POC Glucometer 137 158 Random Glucose Calcium Total Bilirubin AST ALT Alkaline Phosphatase Total Protein Albumin TSH 09/03/18 09/03/18 06:00 06:11 WBC RBC Hgb Hct MCV MCH MCHC RDW Plt Count MPV Sodium 142 Potassium 3.8 Chloride 105 Carbon Dioxide 25 Anion Gap 13 BUN 20 H Creatinine 1.3 Creat Clearance w eGFR 56.90 POC Glucometer 153 Random Glucose 121 H Calcium 8.8 Total Bilirubin 0.6 AST 47 H ALT 58 Alkaline Phosphatase 92 Total Protein 6.2 L Albumin 3.1 L TSH 1.40 D aaox3 ambulating no acute distress Assessment: 09/03/18 12:15 withdrawal sx Plan: increase fluids continue detox
[2018-09-03] MEDS ORDERED: ALBUTEROL SO4 8 GM HFA INHALER IH PRN (12:17)
[2018-09-03] MEDS: ASPIRIN 81 MG CHEWABLE TABLETS PO SCH (14:06)
[2018-09-03] MEDS: GABAPENTIN 100 MG CAPSULE (FP) PO SCH ×2 (14:06→22:38)
[2018-09-03] MEDS: metFORMIN HCL 500 MG TABLET (FP) PO SCH (17:41)
[2018-09-03] MEDS: MONTELUKAST NA 10 MG TABLET PO SCH (22:38)
[2018-09-03] MEDS: ATORVASTATIN CA 40 MG TABLET (FP) PO SCH (22:38)
[2018-09-03] MEDS: THIAMINE HCL 100 MG TABLET (FP) PO SCH (22:40)
[2018-09-04] MEDS: chlordiazePOXIDE HCL 25 MG CAPSULE PO SCH ×2 (05:47→10:29)
[2018-09-04] MEDS: GABAPENTIN 100 MG CAPSULE (FP) PO SCH ×3 (05:47→22:41)
[2018-09-04] MEDS: metFORMIN HCL 500 MG TABLET (FP) PO SCH ×2 (07:00→17:22)
[2018-09-04] MEDS: LEVOTHYROXINE NA 25 MCG TABLET (FP) PO SCH (08:00)
[2018-09-04] MEDS: PRENATAL VITAMINS W/ FOLIC ACID TABLET (FP) PO SCH (10:28)
[2018-09-04] MEDS: RANITIDINE HCL 150 MG TABLET (FP) PO SCH (10:28)
[2018-09-04] MEDS: SILVER SULFADIAZINE 1% TOP CREAM 50 GM JAR TP SCH ×2 (10:29→22:41)
[2018-09-04] MEDS: ASPIRIN 81 MG CHEWABLE TABLETS PO SCH (10:29)
[2018-09-04] MEDS: ENALAPRIL MALEATE 5 MG TABLET (FP) PO SCH (10:29)
[2018-09-04] MEDS: CLOPIDOGREL BISULFATE 75 MG TABLET (FP) PO SCH (10:29)
[2018-09-04] MEDS: FUROSEMIDE 40 MG TABLET (FP) PO SCH (10:30)
[2018-09-04] MEDS: NICOTINE 21 MG/24 HOURS TOPICAL PATCH TD SCH (10:31)
--- NOTE | 2018-09-04 14:07 | PN ---
S CIWA - CIWA Score Nausea/Vomitin Muscle Tremors: 3 Anxiety: 3 Agitation: 2 Paroxysmal Sweats: 3 Orientation: 0-Oriented Tacttile Disturbances: 1-Very Mild Itch/Numbness Auditory Disturbances: 0-None Visual Disturbances: 0-None Headache: 1-Very Mild CIWA-Ar Total Score: 15 S Progress Note (SOAP) Subjective: Interrupted sleep, shakes, sweats, body aches Objective: 09/04/18 14:06 Vital Signs - 8 hr 09/04/18 09/04/18 09/04/18 07:02 09:30 09:32 Temperature 98.2 F 98.2 F 98.2 F Pulse Rate 84 97 H 97 H Respiratory 20 16 16 Rate Blood Pressure 140/82 140/83 140/83 Laboratory Last Values WBC 7.3 K/mm3 (4.0-10.0) 09/03/18 06:00 RBC 4.02 M/mm3 (4.00-5.60) 09/03/18 06:00 Hgb 13.3 GM/dL (11.7-16.9) 09/03/18 06:00 Hct 38.9 % (35.4-49) 09/03/18 06:00 MCV 96.5 fl (80-96) H 09/03/18 06:00 MCH 33.2 pg (25.7-33.7) 09/03/18 06:00 MCHC 34.3 g/dl (32.0-35.9) 09/03/18 06:00 RDW 18.0 % (11.9-15.9) H 09/03/18 06:00 Plt Count 182 K/MM3 (134-434) 09/03/18 06:00 MPV 9.8 fl (7.5-11.1) D 09/03/18 06:00 Sodium 142 mmol/L (136-145) 09/03/18 06:00 Potassium 3.8 mmol/L (3.5-5.1) 09/03/18 06:00 Chloride 105 mmol/L (98-107) 09/03/18 06:00 Carbon Dioxide 25 mmol/L (21-32) 09/03/18 06:00 Anion Gap 13 MMOL/L (8-16) 09/03/18 06:00 BUN 20 mg/dL (7-18) H 09/03/18 06:00 Creatinine 1.3 mg/dL (0.55-1.3) 09/03/18 06:00 Creat Clearance w eGFR 56.90 (>60) 09/03/18 06:00 POC Glucometer 135 UNITS (80-120) 09/04/18 05:46 Random Glucose 121 mg/dL (74-106) H 09/03/18 06:00 Calcium 8.8 mg/dL (8.5-10.1) 09/03/18 06:00 Total Bilirubin 0.6 mg/dL (0.2-1) 09/03/18 06:00 AST 47 U/L (15-37) H 09/03/18 06:00 ALT 58 U/L (13-61) 09/03/18 06:00 Alkaline Phosphatase 92 U/L (45-117) 09/03/18 06:00 Total Protein 6.2 g/dl (6.4-8.2) L 09/03/18 06:00 Albumin 3.1 g/dl (3.4-5.0) L 09/03/18 06:00 TSH 1.40 uIU/ml (0.358-3.74) D 09/03/18 06:00 RPR Titer Nonreactive (NONREACTIVE) 09/03/18 06:00 Labs noted Assessment: 09/04/18 14:06 Withdrawal sx Plan: Continue detox
[2018-09-04] MEDS: chlordiazePOXIDE 5 MG CAPSULE PO SCH ×2 (17:22→22:41)
[2018-09-04] MEDS: ATORVASTATIN CA 40 MG TABLET (FP) PO SCH (22:41)
[2018-09-04] MEDS: THIAMINE HCL 100 MG TABLET (FP) PO SCH (22:41)
[2018-09-04] MEDS: MONTELUKAST NA 10 MG TABLET PO SCH (22:41)
[2018-09-05] MEDS: chlordiazePOXIDE 5 MG CAPSULE PO SCH ×2 (05:50→10:43)
[2018-09-05] MEDS: GABAPENTIN 100 MG CAPSULE (FP) PO SCH ×3 (05:50→22:09)
[2018-09-05] MEDS: LEVOTHYROXINE NA 25 MCG TABLET (FP) PO SCH (06:43)
[2018-09-05] MEDS: metFORMIN HCL 500 MG TABLET (FP) PO SCH ×2 (06:45→17:19)
[2018-09-05] MEDS: CLOPIDOGREL BISULFATE 75 MG TABLET (FP) PO SCH (10:43)
[2018-09-05] MEDS: ASPIRIN 81 MG CHEWABLE TABLETS PO SCH (10:43)
[2018-09-05] MEDS: ENALAPRIL MALEATE 5 MG TABLET (FP) PO SCH (10:43)
[2018-09-05] MEDS: RANITIDINE HCL 150 MG TABLET (FP) PO SCH (10:43)
[2018-09-05] MEDS: SILVER SULFADIAZINE 1% TOP CREAM 50 GM JAR TP SCH ×2 (10:43→22:09)
[2018-09-05] MEDS: PRENATAL VITAMINS W/ FOLIC ACID TABLET (FP) PO SCH (10:43)
[2018-09-05] MEDS: FUROSEMIDE 40 MG TABLET (FP) PO SCH (10:44)
[2018-09-05] MEDS: NICOTINE 21 MG/24 HOURS TOPICAL PATCH TD SCH (10:44)
--- NOTE | 2018-09-05 16:27 | PN ---
BHS Progress Note (SOAP) Subjective: feeling better social with peers in day room sleep better at night no tremor less sweat Objective: 09/05/18 16:25 Vital Signs Temperature 98.2 F 09/05/18 15:26 Pulse Rate 111 H 09/05/18 15:26 Respiratory Rate 16 09/05/18 15:26 Blood Pressure 102/59 L 09/05/18 15:26 O2 Sat by Pulse Oximetry (%) Laboratory Last Values WBC 7.3 K/mm3 (4.0-10.0) 09/03/18 06:00 RBC 4.02 M/mm3 (4.00-5.60) 09/03/18 06:00 Hgb 13.3 GM/dL (11.7-16.9) 09/03/18 06:00 Hct 38.9 % (35.4-49) 09/03/18 06:00 MCV 96.5 fl (80-96) H 09/03/18 06:00 MCH 33.2 pg (25.7-33.7) 09/03/18 06:00 MCHC 34.3 g/dl (32.0-35.9) 09/03/18 06:00 RDW 18.0 % (11.9-15.9) H 09/03/18 06:00 Plt Count 182 K/MM3 (134-434) 09/03/18 06:00 MPV 9.8 fl (7.5-11.1) D 09/03/18 06:00 Sodium 142 mmol/L (136-145) 09/03/18 06:00 Potassium 3.8 mmol/L (3.5-5.1) 09/03/18 06:00 Chloride 105 mmol/L (98-107) 09/03/18 06:00 Carbon Dioxide 25 mmol/L (21-32) 09/03/18 06:00 Anion Gap 13 MMOL/L (8-16) 09/03/18 06:00 BUN 20 mg/dL (7-18) H 09/03/18 06:00 Creatinine 1.3 mg/dL (0.55-1.3) 09/03/18 06:00 Creat Clearance w eGFR 56.90 (>60) 09/03/18 06:00 POC Glucometer 159 UNITS (80-120) 09/05/18 05:49 Random Glucose 121 mg/dL (74-106) H 09/03/18 06:00 Calcium 8.8 mg/dL (8.5-10.1) 09/03/18 06:00 Total Bilirubin 0.6 mg/dL (0.2-1) 09/03/18 06:00 AST 47 U/L (15-37) H 09/03/18 06:00 ALT 58 U/L (13-61) 09/03/18 06:00 Alkaline Phosphatase 92 U/L (45-117) 09/03/18 06:00 Total Protein 6.2 g/dl (6.4-8.2) L 09/03/18 06:00 Albumin 3.1 g/dl (3.4-5.0) L 09/03/18 06:00 TSH 1.40 uIU/ml (0.358-3.74) D 09/03/18 06:00 RPR Titer Nonreactive (NONREACTIVE) 09/03/18 06:00 lab noted Assessment: 09/05/18 16:26 mild withdrawal sx Plan: medically supervised detox
[2018-09-05] MEDS: chlordiazePOXIDE HCL 10 MG CAPSULE PO SCH ×2 (17:19→22:09)
[2018-09-05] MEDS: MONTELUKAST NA 10 MG TABLET PO SCH (22:09)
[2018-09-05] MEDS: THIAMINE HCL 100 MG TABLET (FP) PO SCH (22:09)
[2018-09-05] MEDS: ATORVASTATIN CA 40 MG TABLET (FP) PO SCH (22:09)
[2018-09-05 22:16] VITALS: BP 94/69; PULSE 112; TEMP 99.5
[2018-09-06] MEDS: chlordiazePOXIDE HCL 10 MG CAPSULE PO SCH (05:38)
[2018-09-06] MEDS: GABAPENTIN 100 MG CAPSULE (FP) PO SCH (05:39)
[2018-09-06] MEDS: LEVOTHYROXINE NA 25 MCG TABLET (FP) PO SCH (06:47)
[2018-09-06] MEDS: metFORMIN HCL 500 MG TABLET (FP) PO SCH (06:48)
--- NOTE | 2018-09-06 08:31 | DS ---
[facility] Detox Discharge Summary Admission Date: 09/02/18 Discharge Date: 09/06/18 - History Present History: Alcohol Dependence - Physical Exam Results Vital Signs: Vital Signs Temperature 99.5 F 09/05/18 22:15 Pulse Rate 112 H 09/05/18 22:15 Respiratory Rate 18 09/06/18 03:30 Blood Pressure 94/69 09/05/18 22:15 O2 Sat by Pulse Oximetry (%) - Treatment Hospital Course: Detox Protocol Followed, Detoxed Safely, Responded well, Discharged Condition Good, Rehab Referral Accepted - Medication Discharge Medications: Ambulatory Orders Aspirin [ASA -] 81 mg PO DAILY #30 tab.chew 06/02/15 Atorvastatin Ca [Lipitor] 40 mg PO HS 02/18/16 Fluoxetine HCl [Prozac -] 40 mg PO DAILY #30 capsule 02/18/16 Famotidine [Pepcid -] 20 mg PO DAILY 11/17/16 Albuterol Sulfate Inhaler - [Ventolin HFA Inhaler -] 2 inh PO Q4H PRN #1 can 06/15 Atorvastatin Ca [Lipitor] 40 mg PO HS #30 tablet 09/05/18 Clopidogrel Bisulfate [Plavix -] 75 mg PO DAILY #30 tablet 09/05/18 Enalapril Maleate [Vasotec -] 5 mg PO DAILY #30 tablet 09/05/18 Furosemide [Lasix -] 40 mg PO DAILY #14 tablet 09/05/18 Gabapentin [Neurontin -] 100 mg PO TID #60 capsule 09/05/18 Ipratropium/Albuterol Sulfate [Combivent Respimat 20-100 Mcg] 1 puff IH BID #1 mist.inhal 09/05/18 Levothyroxine [Synthroid -] 75 mcg PO DAILY #30 tablet 09/05/18 Montelukast Na [Singulair -] 10 mg PO HS #30 tablet 09/05/18 metFORMIN HCL [Glucophage -] 500 mg PO BID #60 tablet 09/05/18 - Diagnosis (1) Alcohol dependence with uncomplicated withdrawal Status: Chronic (2) Alcohol-induced mood disorder Status: Acute (3) Asthma without status asthmaticus Status: Chronic Qualifiers: Asthma severity: mild Asthma persistence: intermittent Asthma complication type: uncomplicated Qualified Code(s): J45.20 - Mild intermittent asthma, uncomplicated (4) Cannabis dependence Status: Chronic (5) Friction blister of the foot Status: Acute Qualifiers: Encounter type: initial encounter Laterality: unspecified laterality Qualified Code(s): S90.829A - Blister (nonthermal), unspecified foot, initial encounter (6) Major depressive disorder, recurrent Status: Acute (7) Nicotine dependence Status: Chronic Qualifiers: Nicotine product type: cigarettes Substance use status: uncomplicated Qualified Code(s): F17.210 - Nicotine dependence, cigarettes, uncomplicated (8) Nystagmus Status: Acute (9) Obese Status: Acute Qualifiers: Obesity type: due to excess calories Obesity classification: unspecified obesity classification (10) Substance induced mood disorder Status: Acute (11) Tinea pedis Status: Acute Qualifiers: Laterality: bilateral Qualified Code(s): B35.3 - Tinea pedis (12) Coronary artery disease Status: Chronic Qualifiers: Coronary Disease-Associated Artery/Lesion type: [place] artery [place] vs. transplanted heart: [place] heart Associated angina: without angina Qualified Code(s): I25.10 - Atherosclerotic heart disease of [place] coronary artery without angina pectoris (13) Essential hypertension Status: Chronic (14) Hypercholesterolemia Status: Chronic (15) Major depressive disorder, recurrent episode, moderate Status: Chronic (16) Type 2 diabetes mellitus with hyperglycemia Status: Chronic Qualifiers: Diabetes mellitus truck terminal manager insulin use: unspecified truck terminal manager insulin use status Qualified Code(s): E11.65 - Type 2 diabetes mellitus with hyperglycemia (17) Drug-induced mood disorder Status: Suspected (18) Hypothyroidism Status: Suspected Qualifiers: Hypothyroidism type: unspecified Qualified Code(s): E03.9 - Hypothyroidism , unspecified - AMA Did Patient Leave Against Medical Advice: No (referred to [facility] inpatient rehab)
== END 2018-09-06 06:45 | disposition home or self-care (01) | DRG 775 ==
LOC: YASAS 11:16 → Y6N 13:59
PROC: HZ2ZZZZ Detoxification Services for Substance Abuse Treatment (ICD-10-PCS; principal; 2018-09-02)
DX: F10.230 Alcohol dependence with withdrawal, uncomplicated (principal); F12.20 Cannabis dependence, uncomplicated; F17.210 Nicotine dependence, cigarettes, uncomplicated; F10.24 Alcohol dependence with alcohol-induced mood disorder; F19.24 Other psychoactive substance dependence with psychoactive substance-induced mood disorder; F33.1 Major depressive disorder, recurrent, moderate; I25.10 Atherosclerotic heart disease of native coronary artery without angina pectoris; I10 Essential (primary) hypertension; Z95.5 Presence of coronary angioplasty implant and graft; J44.9 Chronic obstructive pulmonary disease, unspecified; J45.20 Mild intermittent asthma, uncomplicated; E78.00 Pure hypercholesterolemia, unspecified; E03.9 Hypothyroidism, unspecified; E11.65 Type 2 diabetes mellitus with hyperglycemia; Z79.4 Long term (current) use of insulin; B35.3 Tinea pedis; H55.00 Unspecified nystagmus; G62.1 Alcoholic polyneuropathy; E66.9 Obesity, unspecified; Z68.42 Body mass index [BMI] 45.0-49.9, adult; S90.829A Blister (nonthermal), unspecified foot, initial encounter; Z59.0 Homelessness
CPT/HCPCS: 36415; 80053; 82962; 84443; 85027; 86593